=== PATIENT | female | born 1945 | race Caucasian/White ===

== ENCOUNTER 2023-03-07 08:39 | Outpatient (RCR) | payer MEDICARE, OTHER, SELFPAY | END 2023-03-07 23:59 | disposition home or self-care (01) | LOC: RPT 08:39 | PROVIDERS: ATTENDING PHYSICIAN Physical Medicine & Rehabilitation Pain Medicine; FAMILY PHYSICIAN Internal Medicine | DX: M54.6 Pain in thoracic spine (principal); Z73.6 Limitation of activities due to disability; M54.2 Cervicalgia | CPT/HCPCS: 97110; 97162 ==

== ENCOUNTER 2023-03-21 13:01 | Outpatient (RCR) | payer MEDICARE, OTHER, SELFPAY | END 2023-03-28 13:49 | disposition home or self-care (01) | LOC: RPT 13:01 | PROVIDERS: ATTENDING PHYSICIAN Physical Medicine & Rehabilitation Pain Medicine; FAMILY PHYSICIAN Internal Medicine | DX: M54.6 Pain in thoracic spine (principal); Z73.6 Limitation of activities due to disability | CPT/HCPCS: 97010; 97110 ==

== ENCOUNTER → 2023-04-04 20:30 | Outpatient (REF) | payer MEDICARE, OTHER, SELFPAY | LOC: MRI 20:30 | PROVIDERS: ATTENDING PHYSICIAN Specialist; FAMILY PHYSICIAN Nurse Practitioner Primary Care | DX: M25.511 Pain in right shoulder (principal) | CPT/HCPCS: 73221 ==

== ENCOUNTER 2023-05-13 06:06 | Inpatient (IN) | payer MEDICARE, OTHER, SELFPAY ==
--- NOTE | 2023-04-18 09:39 | CM ---
Patient is scheduled for an elective R Reverse TSA on 05/13/23. Spoke with patient prior to surgery. Patient had a R TKR at in 2020. Reintroduced role of Orthopedic Navigator. Patient reports that she lives with her and granddaughter in a
one story home. There are two small steps to enter. There is also a step into the bedroom and a step down to the kitchen. Currently she functions independently. Se has a cane, rolling walker, raised toilet seat and sling. She has had VN services
through VN. PCP is Kajal Malik.
Discussed orthopedic program and post surgical plans. Reviewed anticipated length of stay and assistance that she may need at discharge. Explained that goal is for him to return home at discharge. Also reviewed MD follow up and transition to
outpatient therapy. Patient is in agreement with tentative plan and states that her and granddaughter will be able to assist if needed.
Patient will complete online education.
Plan: Orthopedic Navigator will be involved in the care of patient after surgery and will reassess discharge needs at that time.
[2023-04-25 13:15] VITALS: BMI 27.7
[2023-04-25 14:05] LABS: Hematocrit 35.5 % (37.0-47.0); Mean Corp Hgb Conc. 33.8 g/dL (33.0-37.0); Mean Corpuscular Hgb 31.5 pg (27.0-31.0); Mean Corpuscular Volume 93.2 fL (81.0-99.0); Mean Platelet Volume 9.7 fL (7.4-10.4); Platelet Count 209 10^3/uL (130-400); Red Blood Cell Count 3.81 10^6/uL (4.20-5.40); Red Cell Dist. Width 12.3 % (11.5-14.5)
[2023-04-25 14:19] LABS: ALT (SGPT) 21 U/L (0-35); AST (SGOT) 28 U/L (14-36); Albumin 4.3 g/dl (3.5-5.0); Alkaline Phosphatase 57 U/L (38-126); Blood Urea Nitrogen 16 mg/dl (7-17); Calcium 8.7 mg/dl (8.4-10.2); Carbon Dioxide 25 mmol/L (22-30); Chloride 98 mmol/L (98-107); Estimated Creatinine Clearance 43 ml/min; Glucose 97 mg/dl (70-99); Potassium 4.5 mmol/L (3.5-5.1); Sodium 129 mmol/L (135-145); Total Bilirubin 0.4 mg/dl (0.2-1.3); eGFR > 60.00
[2023-04-25 15:18] VITALS: BMI 27.7
[2023-04-26 09:31] LABS: Glycohemoglobin (HgbA1c) 5.9 % (4.0-5.6)
[2023-05-13] VITALS (19 sets, daily range): BP systolic 113–159; BP diastolic 50–88; PULSE 81; O2SAT 94
[2023-05-13] MEDS: TYLENOL 1000 MG PO (06:36)
[2023-05-13] MEDS: CELEBREX 200 MG PO (06:36)
[2023-05-13] MEDS: NORMOSOL-R 1000 IV (06:36)
[2023-05-13] MEDS: DILAUDID 0.25 MG IV ×2 (09:15→09:26)
[2023-05-13] MEDS: NSS 1000 IV (09:36)
[2023-05-13] MEDS: ZESTRIL PO (11:35)
[2023-05-13] MEDS: ABILIFY 2 MG PO (11:37)
[2023-05-13] MEDS: LEXAPRO 20 MG PO (11:38)
[2023-05-13] MEDS: CRESTOR 10 MG PO (11:38)
[2023-05-13] MEDS: LINZESS 145 MCG PO (11:38)
[2023-05-13] MEDS: PROTONIX 40 MG PO (11:39)
[2023-05-13] MEDS: TYLENOL 650 MG PO ×4 (11:39→23:55)
--- NOTE | 2023-05-13 13:25 | PTCARENOTE ---
Received patient from PACU via bed around 1300 in stable condition. Patient NWB to right arm with sling in place. VS stable. 02 2L NC. Patient oriented to room. Call ceja in reach.
--- NOTE | 2023-05-13 13:48 | W.PN.ORTHO ---
Today's Communication / Plan
-
D/c when clinically stable.
Assessment
.
Distal Motor Intact: Yes
Dressing:
Clean, dry and intact.
Assessment:
R shoulder OA s/p R Reverse JAYANT w/ Dr Sands 05/13/23
- s/p R TKA, 06/2020, by Dr Briggs
DVT prophylaxis - ASA, b/l venous foot pumps
R shoulder pain - give IV Toradol now and add Lidoderm patches
- Continue Tylenol, Oxycodone prn, Decadron BID, and Celebrex
- Monitor pain and adjust meds if indicated
Post-op anxiety - will give low dose Xanax now (last dose reportedly 4 AM per pt) and adjust Xanax from BIDprn to q8hprn
HTN - + parameters - monitor BP
GERD and Hiatal hernia - continue PPI therapy
Irritable bowel syndrome with diarrhea - Colace ONLY to be used initially for post-op bowel regimen
Chronic hyponatremia, improving with fluid restriction - continue 40 oz fluid restriction
- NSS running
Hyperlipidemia
Coronary artery calcifications on chest CT 01/2023
Dilated ascending aorta, 3.9 cm
Mild mitral regurgitation
Mild tricuspid regurgitation
Diverticulosis
Fatty liver disease.
Gallstone pancreatitis 12/2022
Vertigo
Lumbar stenosis
Multilevel degenerative disc disease
Basal cell carcinoma, right cheek, status post excision
Osteopenia
Depression
Anxiety
Insomnia
Prediabetes, A1c 5.9
Plan
.
Surgery / Date: R Reverse JAYANT w/ Dr Sands 05/13/23
DVT Prophylaxis: Aspirin
Activity:
Out of bed.
PT/OT
Discharge Plan: Home
Subjective
.
.:
Patient examined resting in bed.
Reports R shoulder pain currently 07/20.
Reports post-op anxiety; however, denies any other new significant complaints.
Vital Signs and Labs
.
Vital Signs and Labs:
Lab Results
04/25/23 12:47
04/25/23 12:47
Temp Pulse Resp BP Pulse Ox
98.0 F 82 23 135/69 95
05/13/23 09:02 05/13/23 11:35 05/13/23 11:30 05/13/23 11:35 05/13/23 11:30
Physical Exam
-
HEENT: No pallor, cyanosis, or jaundice. Throat clear.
NECK: Supple. No JVD.
RESPIRATORY: Lungs clear to auscultation.
CVS: S1, S2 normal. RRR.�
ABDOMEN: Soft, non-tender. No distension.
EXTREMITIES: + RUE sling. Able to wiggle fingers b/l. 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 Strength equal, no calf pain with palpation/dorsiflexion. Calves soft.
DRAPERY EXAMINER: AOx3. No focal deficits. human resources safety manager grossly intact
[2023-05-13] MEDS: XANAX 0.25 MG PO (14:14)
[2023-05-13] MEDS: LIDOCAINE 4% PATCH 2 PATCH TOPICAL (14:14)
[2023-05-13] MEDS: TORADOL 30 MG IV (14:23)
[2023-05-13] MEDS: ANCEF 5 IV ×2 (16:23→23:54)
[2023-05-13] MEDS: ASPIRIN 325 MG PO (17:52)
[2023-05-13] MEDS: DECADRON 4 MG PO (20:15)
[2023-05-13] MEDS: ROXICODONE 10 MG PO (20:15)
[2023-05-13] MEDS: COLACE 100 MG PO (20:15)
[2023-05-13] MEDS: DESYREL 50 MG PO (21:27)
[2023-05-13] MEDS: BACTROBAN 2% OINTMENT 1 APPLIC NASAL (22:27)
[2023-05-14 03:30] VITALS: BP 134/72
[2023-05-14] MEDS: TYLENOL PO (05:00)
[2023-05-14] MEDS: ROXICODONE 2.5 MG PO (05:29)
[2023-05-14 07:35] VITALS: BP 137/79
[2023-05-14] MEDS: CELEBREX 200 MG PO (07:47)
[2023-05-14] MEDS: LEXAPRO 20 MG PO (07:48)
[2023-05-14] MEDS: ABILIFY 2 MG PO (07:48)
[2023-05-14] MEDS: ZESTRIL 20 MG PO (07:48)
[2023-05-14] MEDS: PROTONIX 40 MG PO (07:48)
[2023-05-14] MEDS: CRESTOR 10 MG PO (07:49)
[2023-05-14] MEDS: ASPIRIN 325 MG PO (07:49)
[2023-05-14] MEDS: TOPROL XL 25 MG PO (07:49)
[2023-05-14] MEDS: TYLENOL 650 MG PO (07:50)
[2023-05-14] MEDS: COLACE 100 MG PO (07:50)
[2023-05-14] MEDS: BACTROBAN 2% OINTMENT 1 APPLIC NASAL (07:50)
[2023-05-14] MEDS: DECADRON 4 MG PO (07:50)
[2023-05-14] MEDS: LIDOCAINE 4% PATCH 2 PATCH TOPICAL (07:51)
--- NOTE | 2023-05-14 08:29 | CM ---
Addendum entered by Blanche Moreau 05/14/23 09:49:
Patient did well in therapy. She has no concerns about going home and has updated her daughter. Her daughter will be present for discharge instructions; RN aware.
Original Note:
Reviewed chart and held rounds with OT and nursing. Patient admitted as planned for elective R Reverse TSA. Met with patient at bedside. Confirmed information previously obtained for case management assessment and discussed discharge plans. The plan
is for patient to return home at discharge. She will have support from her daughters, and granddaughter when she goes home. Discussed MD follow up and she is aware of need to contact surgeon's office to schedule appointment. Also reviewed no
need for VN services or outpatient PT until cleared by surgeon.
Patient will use [facility] pharmacy for discharge prescriptions.
No needs currently identified.
--- NOTE | 2023-05-14 09:03 | W.PN.ORTHO ---
Today's Communication / Plan
-
Await OT recs.
D/c later today if remaining clinically stable.
Assessment
.
Distal Motor Intact: Yes
Dressing:
Clean, dry and intact.
Assessment:
R shoulder OA s/p R Reverse TSA w/ Dr Sands 05/13/23
- s/p R TKA, 06/2020, by Dr Briggs
DVT prophylaxis - ASA, b/l venous foot pumps
R shoulder pain POD 0 - s/p IV Toradol x1 and Lidoderm patches
- Tylenol, Oxycodone prn, Decadron BID, and Celebrex continued
- Pain better tolerated by POD 1
Anxiety POD 0 - Xanax adjusted to q8hprn during admission
- Pt less nervous this AM; can return to home dosing of Xanax (BIDprn) upon d/c
HTN - + parameters - BPs stable
GERD and Hiatal hernia - continue PPI therapy
Irritable bowel syndrome with diarrhea - Colace ONLY to be used initially for post-op bowel regimen
- Will advise adding Senna if no bowel movement occurs within 48 hours post-surgery
Chronic hyponatremia, improving with fluid restriction - continue 40 oz fluid restriction
- s/p NSS during admit
Hyperlipidemia
Coronary artery calcifications on chest CT 01/2023
Dilated ascending aorta, 3.9 cm
Mild mitral regurgitation
Mild tricuspid regurgitation
Diverticulosis
Fatty liver disease.
Gallstone pancreatitis 12/2022
Vertigo
Lumbar stenosis
Multilevel degenerative disc disease
Basal cell carcinoma, right cheek, status post excision
Osteopenia
Depression
Anxiety
Insomnia
Prediabetes, A1c 5.9
Plan
.
Surgery / Date: R Reverse TSA w/ Dr Sands 05/13/23
DVT Prophylaxis: Aspirin
Activity:
Out of bed.
PT/OT
Discharge Plan: Home
Subjective
.
.:
Patient resting comfortably in bed this AM.
Reports R shoulder pain at worst '05/20' today; notes major improvement in pain since yesterday.
Denies any other new significant complaints.
Eager for potential d/c today.
Vital Signs and Labs
.
Vital Signs and Labs:
Lab Results
04/25/23 12:47
04/25/23 12:47
Temp Pulse Resp BP Pulse Ox
98.6 F 69 16 128/79 94
05/14/23 07:35 05/14/23 07:35 05/14/23 07:35 05/14/23 07:49 05/14/23 07:35
Non-invasive Hgb result: 11.2
Physical Exam
-
HEENT: No pallor, cyanosis, or jaundice. Throat clear.
NECK: Supple. No JVD.
RESPIRATORY: Lungs clear to auscultation.
CVS: S1, S2 normal. RRR.�
ABDOMEN: Soft, non-tender. Non-distended.
EXTREMITIES: + RUE sling. Able to wiggle fingers b/l. Good animal cruelty investigator b/l. Strength equal, no calf pain with palpation/dorsiflexion. Calves soft.
SAND CONDITIONER MACHINE: AOx3. No focal deficits. manager qa grossly intact
[2023-05-14] MEDS: ROXICODONE 5 MG PO (09:34)
--- NOTE | 2023-05-14 09:41 | W.DS.TRANS ---
DC Summary - [employer]
-
Discharge Instructions:
Sleep Apnea Risk Low
Discharge Diagnosis/Procedures R shoulder OA s/p R Reverse TSA w/ Dr Sands
24
Diet Regular,Other diet
Additional Diets Restrict fluids to 40 oz daily
Activity As tolerated
Additional Activity Non-weightbearing right upper extremity
Driving Restrictions Not until seen by your Dr
Bathing Restrictions OK to Shower
Wound Care Leave dressing on until seen by surgeon's office
for follow-up in 2 weeks.
Instructions:
Stand-Alone Forms: Total Shoulder Replacement D/C
Changes to Home Medications: Yes
Discharge Medications:
DC Medications w/original date entered in [facility]
Prevagen 1 tab PO DAILY Supplement 05/25/20
linaclotide 145 mcg capsule (Linzess) 145 mcg PO DAILY Gastrointestinal Issue 05/25/20
metoprolol succinate 25 mg tablet,extended release 24 hr 25 mg PO DAILY Blood Pressure 05/25/20
esomeprazole magnesium 20 mg capsule,delayed release (Nexium 24HR) 40 mg PO DAILY Gastrointestinal Issue 07/11/22
Vitamin B-12 2 tab PO DAILY Supplement 04/22/23
aripiprazole 2 mg tablet 2 mg PO DAILY depression 04/22/23
cholecalciferol (vitamin D3) 125 mcg (5,000 unit) tablet (Vitamin D3) 250 mcg PO DAILY Supplement 04/22/23
escitalopram oxalate 20 mg tablet (Lexapro) 20 mg PO DAILY depression 04/22/23
multivit with min-folic acid-lutein 400 mcg-250 mcg chewable tablet (Centrum Silver) 2 tab PO DAILY Supplement 04/22/23
rosuvastatin 10 mg tablet (Crestor) 10 mg PO DAILY High Cholesterol 04/22/23
vitamins A,C,O-otcy-qxqxcd 2,148 mcg-113 mg-45 mg-17.4 mg tablet (PreserVision AREDS) 1 tab PO DAILY Supplement 04/22/23
mupirocin 2 % topical ointment 1 applic intranasal BID #1 tube 04/25/23
acetaminophen 500 mg tablet (Tylenol Extra Strength) 1,000 mg (2 x 500 mg) PO Q6H #60 tabs 05/13/23
aspirin 325 mg tablet,delayed release 325 mg PO DAILY #30 tabs 05/13/23
dexamethasone 4 mg tablet 4 mg PO BID Anti-inflammatory #5 tabs 05/13/23
docusate sodium 100 mg capsule (Colace) 100 mg PO BID #30 caps 05/13/23
prochlorperazine maleate 5 mg tablet (Compazine) 5 mg PO TID PRN nausea and vomiting #30 tabs 05/13/23
sennosides 8.6 mg capsule (senna) 17.2 mg (2 x 8.6 mg) PO BID PRN Constipation #30 caps 05/13/23
alprazolam 0.5 mg tablet 0.25 mg (1/2 x 0.5 mg) PO BIDPRN PRN anxiety #0 tabs 05/14/23
celecoxib 200 mg capsule (Celebrex) 200 mg PO DAILY #0 caps 05/14/23
lidocaine 4 % topical patch 2 patch topical DAILY #30 ea 05/14/23
lisinopril 20 mg tablet 20 mg PO DAILY Blood Pressure #0 tabs 05/14/23
oxycodone 5 mg tablet 5 - 10 mg (1 - 2 x 5 mg) PO Q6H PRN moderate-severe pain #30 tabs 05/14/23
trazodone 50 mg tablet 50 mg PO HS PRN insomnia #0 tabs 05/14/23
Home Medication Changes
acetaminophen 500 mg tablet (Tylenol Extra Strength) 1,000 mg (2 x 500 mg) PO Q6H #60 tabs 05/13/23
aspirin 325 mg tablet,delayed release 325 mg PO DAILY #30 tabs 05/13/23
dexamethasone 4 mg tablet 4 mg PO BID Anti-inflammatory #5 tabs 05/13/23
docusate sodium 100 mg capsule (Colace) 100 mg PO BID #30 caps 05/13/23
prochlorperazine maleate 5 mg tablet (Compazine) 5 mg PO TID PRN nausea and vomiting #30 tabs 05/13/23
sennosides 8.6 mg capsule (senna) 17.2 mg (2 x 8.6 mg) PO BID PRN Constipation #30 caps 05/13/23
lidocaine 4 % topical patch 2 patch topical DAILY #30 ea 05/14/23
oxycodone 5 mg tablet 5 - 10 mg (1 - 2 x 5 mg) PO Q6H PRN moderate-severe pain #30 tabs 05/14/23
Pending Results: No
[2023-05-14 09:49] VITALS: BP 146/79; BP 160/80; PULSE 70; O2SAT 92
[2023-05-14] MEDS: LINZESS PO (10:09)
[2023-05-14 11:37] VITALS: BP 165/85
== END 2023-05-14 11:41 | disposition home or self-care (01) | DRG 483 ==
LOC: 2 SOUTH 06:06
PROVIDERS: ADMITTING PHYSICIAN Specialist; FAMILY PHYSICIAN Nurse Practitioner Primary Care
PROC: 0LS30ZZ Reposition Right Upper Arm Tendon, Open Approach (ICD-10-PCS; 2023-05-13)
PROC: 0RRJ00Z Replacement of Right Shoulder Joint with Reverse Ball and Socket Synthetic Substitute, Open Approach (ICD-10-PCS; 2023-05-13)
DX: M19.011 Primary osteoarthritis, right shoulder (principal); E87.1 Hypo-osmolality and hyponatremia; I10 Essential (primary) hypertension; E78.5 Hyperlipidemia, unspecified; I25.10 Atherosclerotic heart disease of native coronary artery without angina pectoris; I77.819 Aortic ectasia, unspecified site; I08.1 Rheumatic disorders of both mitral and tricuspid valves; K21.9 Gastro-esophageal reflux disease without esophagitis; K44.9 Diaphragmatic hernia without obstruction or gangrene; K76.0 Fatty (change of) liver, not elsewhere classified; M48.061 Spinal stenosis, lumbar region without neurogenic claudication; F32.A Depression, unspecified; F41.9 Anxiety disorder, unspecified; M81.0 Age-related osteoporosis without current pathological fracture; K58.0 Irritable bowel syndrome with diarrhea; G47.00 Insomnia, unspecified; R73.03 Prediabetes; Z87.19 Personal history of other diseases of the digestive system; Z85.828 Personal history of other malignant neoplasm of skin
CPT/HCPCS: 36415; 73020; 80053; 83036; 85027; 87070; 93005; 97166; 97535; C1713; C1776

== ENCOUNTER 2023-06-04 12:04 | Outpatient (RCR) | payer MEDICARE, OTHER, SELFPAY | END 2023-06-04 23:59 | disposition home or self-care (01) | LOC: RPT 12:04 | PROVIDERS: ATTENDING PHYSICIAN Physician Assistant Surgical; FAMILY PHYSICIAN Nurse Practitioner Primary Care | DX: Z47.1 Aftercare following joint replacement surgery (principal); Z96.611 Presence of right artificial shoulder joint; Z73.6 Limitation of activities due to disability | CPT/HCPCS: 97010; 97110; 97162; 97535 ==

== ENCOUNTER 2023-07-09 14:06 | Outpatient (RCR) | payer MEDICARE, OTHER, SELFPAY | END 2023-07-09 23:59 | disposition home or self-care (01) | LOC: RPT 14:06 | PROVIDERS: ATTENDING PHYSICIAN Physician Assistant Surgical; FAMILY PHYSICIAN Nurse Practitioner Primary Care | DX: Z47.1 Aftercare following joint replacement surgery (principal); Z96.611 Presence of right artificial shoulder joint; M25.511 Pain in right shoulder; Z73.6 Limitation of activities due to disability | CPT/HCPCS: 97010; 97110 ==

== ENCOUNTER 2023-08-06 14:14 | Outpatient (RCR) | payer MEDICARE, OTHER, SELFPAY | END 2023-08-06 23:59 | disposition home or self-care (01) | LOC: RPT 14:14 | PROVIDERS: ATTENDING PHYSICIAN Physician Assistant Surgical; FAMILY PHYSICIAN Nurse Practitioner Primary Care | DX: Z47.1 Aftercare following joint replacement surgery (principal); Z96.611 Presence of right artificial shoulder joint; Z73.6 Limitation of activities due to disability | CPT/HCPCS: 97010; 97110 ==

== ENCOUNTER → 2023-11-25 08:56 | Outpatient (REF) | payer MEDICARE, OTHER, SELFPAY ==
[2023-11-25 11:07] LABS: % Basophils 0.5 % (0-2); % Eosinophils 2.7 % (0-6); % Immature Granulocytes 0.6 % (0-0.5); % Monocytes 7.9 % (1.7-9.3); % Neutrophils 71.3 % (42.2-75.2); Absolute Basophils 0.1 10^3/uL (0-0.2); Absolute Eosinophils 0.3 10^3/uL (0-0.7); Absolute Immature Granulocytes 0.1 10^3/uL (0-0.05); Absolute Lymphocytes 1.6 10^3/uL (1.2-3.4); Absolute Monocytes 0.8 10^3/uL (0.1-0.6); Absolute Neutrophils 6.7 10^3/uL (1.4-6.5); Hematocrit 33.6 % (37.0-47.0); Hemoglobin 11.3 g/dL (12.0-16.0); Mean Corp Hgb Conc. 33.6 g/dL (33.0-37.0); Mean Corpuscular Hgb 29.3 pg (27.0-31.0); Nucleated Red Blood Cells % 0 %; Red Blood Cell Count 3.86 10^6/uL (4.20-5.40); Red Cell Dist. Width 14.6 % (11.5-14.5); White Blood Cell Count 9.5 10^3/uL (4.8-10.8)
[2023-11-25 11:50] LABS: Blood Urea Nitrogen 19 mg/dl (7-17); Calcium 9.5 mg/dl (8.4-10.2); Carbon Dioxide 22 mmol/L (22-30); Chloride 100 mmol/L (98-107); Glucose 111 mg/dl (70-99); Potassium 4.7 mmol/L (3.5-5.1); Sodium 134 mmol/L (135-145); eGFR > 60.00
== END ==
LOC: SDSPAT 08:56
PROVIDERS: ATTENDING PHYSICIAN Student in an Organized Health Care Education/Training Program; FAMILY PHYSICIAN Nurse Practitioner Primary Care; OTHER PHYSICIAN Internal Medicine Cardiovascular Disease
DX: Z01.818 Encounter for other preprocedural examination (principal)
CPT/HCPCS: 36415; 80048; 85025; 93005

== ENCOUNTER 2023-11-26 20:26 | Inpatient (IN) | payer MEDICARE, OTHER, SELFPAY ==
[2023-11-26 13:41] VITALS: BP 174/96
[2023-11-26 13:59] LABS: % Basophils 0.3 % (0-2); % Immature Granulocytes 0.5 % (0-0.5); % Lymphocytes 16.1 % (20.5-51.1); % Monocytes 9.7 % (1.7-9.3); % Neutrophils 70.4 % (42.2-75.2); Absolute Eosinophils 0.3 10^3/uL (0-0.7); Absolute Immature Granulocytes 0.1 10^3/uL (0-0.05); Absolute Lymphocytes 1.7 10^3/uL (1.2-3.4); Absolute Neutrophils 7.4 10^3/uL (1.4-6.5); Hematocrit 33.2 % (37.0-47.0); Mean Corp Hgb Conc. 33.1 g/dL (33.0-37.0); Mean Corpuscular Hgb 28.5 pg (27.0-31.0); Mean Platelet Volume 9.2 fL (7.4-10.4); Nucleated Red Blood Cells % 0 %; Platelet Count 250 10^3/uL (130-400); Red Blood Cell Count 3.86 10^6/uL (4.20-5.40); Red Cell Dist. Width 14.9 % (11.5-14.5); White Blood Cell Count 10.4 10^3/uL (4.8-10.8)
[2023-11-26 14:12] LABS: ALT (SGPT) 17 U/L (0-35); AST (SGOT) 24 U/L (14-36); Albumin 4.3 g/dl (3.5-5.0); Alkaline Phosphatase 48 U/L (38-126); Blood Urea Nitrogen 15 mg/dl (7-17); Calcium 8.9 mg/dl (8.4-10.2); Carbon Dioxide 26 mmol/L (22-30); Chloride 98 mmol/L (98-107); Glucose 119 mg/dl (70-99); Sodium 137 mmol/L (135-145); Total Bilirubin 0.3 mg/dl (0.2-1.3); Total Protein 6.9 g/dl (6.3-8.2); eGFR > 60.00
[2023-11-26 14:25] LABS: Troponin I < 0.012 ng/ml
[2023-11-26 16:22] VITALS: BP 147/85
[2023-11-26 17:58] VITALS: BP 157/86
--- NOTE | 2023-11-26 17:59 | ED.GENMED ---
History of Present Illness
General
Chief Complaint: Chest Pain
Time Seen by Provider: 11/26/23 17:42
History of Present Illness
History of Present Illness:
78-year-old female with history of hypertension and hyperlipidemia presents to the emergency department for evaluation of pleuritic left-sided chest discomfort that began suddenly last night. Pain is nonradiating, denies any recent coughing or
viral symptoms. No nausea or vomiting. Non-smoker
Past History
Past History
ED Past Medical History: Other (IBS, diverticulitis)
Social History
Tobacco: Non-smoker
Alcohol: Occasional
Family History
Family History: Negative Diabetes, Hypertension or CAD
Review of Systems
Review of Systems
Allergies reviewed?: Yes
All Other Systems: ROS reviewed and negative except as documented in HPI and ROS
Phy Exam
Physical Exam
Physical Exam:
GEN: Well appearing, NAD, WDWN
Eyes: PERRLA, EOMs intact, no scleral icterus
HENT: NCAT, oral mucosa moist, no JVD, no cervical adenopathy.
Lungs: Diminished bibasilar breath sounds likely secondary to inspiratory effort
Cardiac: RRR, no M/R/G, no peripheral edema. Radial pulses 2+ bilat
Abdomen: S, NT, ND, NABS, no masses or hepatosplenomegaly
Neuro: AO x 3
MSK: No gross deformity or ecchymosis. No edema. No digital clubbing
Skin: No rashes, petechiae. Normal color, no pallor or jaundice.
Psych: Calm, cooperative, proper hygiene
Scores
Heart Score for Chest Pain Patients
STEMI patient?: Not applicable
Course
Orders/Labs/Results
Orders:
Orders
11/26/23 13:37
Electrocardiogram (*1) Urgent
Reason for Study: Chest Pain
EKG- Treatment ONCE
11/26/23 13:50
CMP [Comprehensive Metabolic Panel] Urgent
Complete Blood Count/With Diff Urgent
D-Dimer Urgent
Troponin I Urgent
11/26/23 17:58
CT Chest Pe Study Urgent
Comment:
Reason For Exam: pleuritic chest pain elevated D dimer
11/26/23 19:14
Oxycodone [Roxicodone] 5 mg PO NOW STA
11/26/23 19:54
Ketorolac [Toradol] 15 mg IV NOW STA
11/26/23 19:55
Trazodone [Desyrel] 50 mg PO HSPRN PRN
11/26/23 19:56
Admit/Transfer Patient As Directed
Co-Sign Provider:
Level of Care: Inpatient admission
Assign to:: Medical/Surgical
Physician / Group: hospitalist
Diagnosis: pleuritis
Reason for Hospitalization: pleural effusion
Expected length of stay greater than two midnights?: Yes
ELOS- Estimated Length of Stay in days: 2
I certify the patient meets the requirements for IP care: Yes
Code Status As Directed
Resuscitation Status: Full Code
PRN Pain Medication Management As Directed
May give lesser potent ordered pain med per pt: Yes
preference::
Protocol:: Medication orders for pain may be administered in a
manner that supports deferring to patient preference
when the pt is:
- Requesting an ordered lesser potent pain medication.
Least to most potent pain medications are defined
as: acetaminophen < NSAID < tramadol < opioids
(morphine, oxycodone, hydromorphone).
- Requesting a lesser dose of the same medication IF
ORDERED.
- Requesting a less intrusive route of administration
if both routes are prescribed by the provider (PO <
IV).
11/26/23 20:00
Alprazolam [Xanax] 0.25 mg PO BID
11/27/23 08:00
Aripiprazole [Abilify] 2 mg PO DAILY
Cyanocobalamin [Vitamin B-12] 1,000 mcg PO DAILY
Escitalopram Oxalate [Lexapro] 20 mg PO DAILY
Linaclotide [Linzess] 145 mcg PO DAILY
Lisinopril [Zestril] 20 mg PO DAILY
Metoprolol Xl [Toprol Xl] 25 mg PO DAILY
Rosuvastatin Calcium [Crestor] 10 mg PO DAILY
esomeprazole magnesium [Nexium 24HR] 40 mg PO DAILY
Abnormal Lab Results
11/26/23
13:50
RBC 3.86 L 10^6/uL
(4.20-5.40)
Hgb 11.0 L g/dL
(12.0-16.0)
Hct 33.2 L %
(37.0-47.0)
RDW 14.9 H %
(11.5-14.5)
Abs Immat Gran (auto) 0.1 H 10^3/uL
(0-0.05)
Absolute Neuts (auto) 7.4 H 10^3/uL
(1.4-6.5)
Absolute Monos (auto) 1.0 H 10^3/uL
(0.1-0.6)
Lymphocytes % 16.1 L %
(20.5-51.1)
Monocytes % 9.7 H %
(1.7-9.3)
D-Dimer 2.70 H ug/mlFEU
(0.00-0.50)
Glucose 119 H mg/dl
(70-99)
11/26/23 13:50
11/26/23 13:50
Vital Signs
Initial and Last Documented VS:
Initial Vital Signs
Temp Pulse Resp BP Pulse Ox
98.8 F 82 18 174/96 97
11/26/23 13:41 11/26/23 13:41 11/26/23 13:41 11/26/23 13:41 11/26/23 13:41
Last Documented Vital Signs
Temp Pulse Resp BP Pulse Ox
98.1 F 83 20 157/86 96
11/26/23 16:22 11/26/23 17:58 11/26/23 17:58 11/26/23 17:58 11/26/23 17:58
MDM/Problems Addressed
MDM/Problems Addressed:
Etiology to the patient's pleural effusions is not clear however she is quite discomforted by the pain, did discuss options for outpatient versus inpatient management, given her significant symptoms we will admit for IR consultation and possible
diagnostic/therapeutic thoracentesis
*Critical Care Note
Total Time (30-74mins, 75-104mins- exclusive of procedures): Not Applicable
ED Attending Note
-
Portions of this chart may have been created with voice recognition software.� Occasional wrong word or��sound alike� substitutions may have occurred due to the inherent limitations of voice recognition software.
Discharge Plan
Departure
Patient Disposition: Admit
Date of Disposition: 11/26/23
Time of Disposition: 19:22
Presentation/result/management discussed w/ accepting MD/DO: Hospitalist
Discharge Problem:
Pleural effusion
Prescriptions:
No Action
metoprolol succinate 25 MG tablet extended release 24 hr
25 mg PO DAILY
Linzess 145 MCG capsule
145 mcg PO DAILY
Prevagen
1 tab PO DAILY
esomeprazole magnesium [Nexium 24HR] 20 MG capsule,delayed release(DR/EC)
40 mg PO DAILY
cyanocobalamin (vitamin B-12) 1,000 mcg Tablet
1,000 mcg PO DAILY Qty: 0
escitalopram oxalate [Lexapro] 20 mg Tablet
20 mg PO DAILY
PreserVision AREDS 2,148 mcg-113 mg-45 mg-17.4mg Tablet
1 tab PO DAILY
rosuvastatin [Crestor] 10 mg Tablet
10 mg PO DAILY
aripiprazole 2 mg Tablet
2 mg PO DAILY
celecoxib [Celebrex] 200 mg Capsule
200 mg PO DAILY Qty: 0 0RF
Rx Instructions:
Home medication.
Take with food.
DO NOT take within 2 hours of Aspirin.
lisinopril 20 MG tablet
20 mg PO DAILY Qty: 0 0RF
tramadol 50 mg Tablet
50 mg PO TID
Patient Comments:
11/26/2023: last filled 11/06/23, 90 tabs for 30 days from [facility]
Centrum Silver Women 8 mg iron-400 mcg-50 mcg Tablet
1 tab PO DAILY
alprazolam 0.25 mg tablet
0.25 mg PO BID
Patient Comments:
11/26/2023: last filled 10/31/23, 60 tabs for 30 days from [facility]
trazodone 50 mg tablet
50 mg PO HSPRN PRN (Reason: insomnia)
Referrals:
Kajal Malik CRNP [Family Provider] -
Interventions
Interventions:
*Risk Screen - Suicide Last Done: 11/26/23 13:41
*General Assessment Last Done: 11/26/23 13:41
*Neglect/Abuse Screening Last Done: 11/26/23 13:41
ED- Fall Risk Assessment Last Done: 11/26/23 17:42
*ED COVID-19 Vaccine History Last Done: 11/26/23 13:41
ED- Cardiac Assessment Last Done: 11/26/23 17:42
Discharge Date and Time
Print Language: PALAUAN
[2023-11-26] MEDS: ROXICODONE 5 MG PO (19:24)
[2023-11-26] MEDS: TORADOL 15 MG IV (19:58)
--- NOTE | 2023-11-26 20:03 | HPS.HSE ---
Family Physician
-
Family Physician: Kajal Malik
Chief Complaint
-
Bilateral chest pain
History of Present Illness
This is a 78-year-old female with a past medical history of hypertension, hyperlipidemia, depression and anxiety presenting to the emergency department with acute onset of low generalized chest pain that started today.
Patient reports that she arose and started noticing chest pain throughout her chest. Mostly on the left but also on the right. She reports that the pain is worse with breathing, coughing or sneezing. She denied having any fevers. She denied any
chills. She denied any cough. She denies upper respiratory symptoms. Patient reports that she had been in usual state of health really up until the onset of events. She only feels slightly more tired yesterday compared to today. She has known
sick contacts (spouse did have a cold). Patient herself reported that she started taking antibiotics about 2 weeks ago for a tooth abscess. She finished the antibiotics yesterday. She was actually pending a dental appointment today for follow-up.
Patient denies any recent travels. She has no history of immunocompromise. She denies any lower extremity swelling calf tenderness, lightheadedness or dizziness.
In the emergency department the patient was afebrile, she was normotensive with a blood pressure of 157/80 and pulse was 83 she was satting 96% on room air. She had elevated D-dimer so a CT PE study was done. It showed small bilateral pleural
effusions that were loculated with left greater than right. She had no leukocytosis with a white count of 10.4 hemoglobin was 11 and platelet count was 250. Chemistries were all within normal limits.
Medical History
Past Medical History
Past Medical History: Reports GERD, HTN, Hypercholesterolemia and Psychiatric
Past Surgical History: Reports Other
Additional Past Surgical History:
Hysterectomy last year for pelvic floor dysfunction
Right total shoulder arthroplasty
Social History
Tobacco: Non-smoker
Alcohol: None
Drug: None
Personal:
Living: With Family
Employment: Retired
Family History
Family History: Not pertinent
Allergies / Home Medications
Allergies reflects when Allergies were last updated in [facility].
Home Medications with original date entered in [facility]
Allergy/Medication List:
Allergies
Allergy/AdvReac Type Severity Reaction Status Date / Time
No Known Allergies Allergy Verified 11/26/23 13:44
Home Medications
Prevagen 1 tab PO DAILY Supplement 05/25/20
linaclotide 145 mcg capsule (Linzess) 145 mcg PO DAILY Gastrointestinal Issue 05/25/20
metoprolol succinate 25 mg tablet,extended release 24 hr 25 mg PO DAILY Blood Pressure 05/25/20
esomeprazole magnesium 20 mg capsule,delayed release (Nexium 24HR) 40 mg PO DAILY Gastrointestinal Issue 07/11/22
aripiprazole 2 mg tablet 2 mg PO DAILY depression 04/22/23
cyanocobalamin (vitamin B-12) 1,000 mcg tablet 1,000 mcg PO DAILY Supplement ##0 04/22/23
escitalopram oxalate 20 mg tablet (Lexapro) 20 mg PO DAILY depression 04/22/23
rosuvastatin 10 mg tablet (Crestor) 10 mg PO DAILY High Cholesterol 04/22/23
vitamins A,C,C-vgfr-lbucxg 2,148 mcg-113 mg-45 mg-17.4 mg tablet (PreserVision AREDS) 1 tab PO DAILY Supplement 04/22/23
celecoxib 200 mg capsule (Celebrex) 200 mg PO DAILY #0 caps 05/14/23
lisinopril 20 mg tablet 20 mg PO DAILY Blood Pressure #0 tabs 05/14/23
alprazolam 0.25 mg tablet 0.25 mg PO BID 11/26/23
wahgcjcy-xfrc-boro 8 mg-folic 400 mcg-K 50 mcg-lutein 300 mcg tablet (Centrum Silver Women) 1 tab PO DAILY 11/26/23
tramadol 50 mg tablet 50 mg PO TID 11/26/23
trazodone 50 mg tablet 50 mg PO HSPRN PRN insomnia 11/26/23
Review of Systems
-
History Source: Patient
Constitutional: Reports No Symptoms
EENT: Reports No Symptoms
Respiratory: Reports Trouble Breathing
Cardiac: Reports Chest Pain
Abdomen/GI: Reports No Symptoms
: Reports No Symptoms
Musculoskeletal: Reports No Symptoms
Skin: Reports No Symptoms
Neurological: Reports No Symptoms
Endocrine: Reports No Symptoms
Psych: Reports No Symptoms
Physical Exam
Vital Signs
Vital Signs
Temp Pulse Resp BP Pulse Ox
98.1 F 83 20 157/86 96
11/26/23 16:22 11/26/23 17:58 11/26/23 17:58 11/26/23 17:58 11/26/23 17:58
Physical Exam
General: Well Developed, Well Nourished and Pain
HEENT: NormoCephalic, Anicteric, Moist mucous membranes and Atraumatic
Respiratory: Clear
Cardiac: S1/S2 and Regular Rhythm
Breast: Deferred by me
GI: Soft, Non Tender, Non Distended and Normal Bowel Sounds
Rectal: Deferred by Provider
Genito-urinary: Deferred by me
Musculoskeletal: No Clubbing, No Cyanosis and No Edema
Skin: Warm
Neuro: AO x 3
Hematologic/Lymphatic: No Lymphadenopathy
Psych: Calm
Laboratory Results
-
11/26/23 13:50
11/26/23 13:50
Laboratory Results
Total Bilirubin 0.3 mg/dl (0.2-1.3) 11/26/23 13:50
AST 24 U/L (14-36) 11/26/23 13:50
ALT 17 U/L (0-35) 11/26/23 13:50
Alkaline Phosphatase 48 U/L (38-126) 11/26/23 13:50
Troponin I < 0.012 ng/ml 10/16/24 13:50
Data Reviewed
-
CT Scan: Report Reviewed by me
Lab Data: Labs Reviewed by me
Old Records: Reviewed
Impression/Plan
-
IMPRESSION:
78 y.o female coming in with one day of pleuritic chest pain and found to have bilateral loculated effusions, L > R. She is afebrile, hemodynamically stable and without leukocytosis. No significant HPI except recent tooth abscess for which she
completed a course of amoxicillin yesterday. No consolidations, hypoxia, cough, wheezing to suggest parapneumonic effusion but cannot rule out infected pleural effusions. No evidence of CHF.
PLAN:
1. Pleural effusion - Bilateral loculated effusions. No obvious signs of systemic infection. No consolidation on CT scan and no PE. Infectious vs inflammatory effusion.
- admit to medsurg
- pain control and supportive care for now
- IR consult for diagnostic thoracentesis of the larger left effusion
- blood cultures if febrile and initiate abx only if decompensating prior to studies
- inflammatory markers in am (no rash, joint symptoms or h/o CTDs)
2. Hypertension -
- continue lisinopril and metoprolol
3. GERD - ppi
4. Psych
- lexapro and aripiprazole for depression
DVT PPX - lovenox sq
Code Status - Full
[2023-11-26 20:43] VITALS: BP 168/88
[2023-11-26 21:58] VITALS: BP 134/76
[2023-11-26 23:25] VITALS: BP 108/65; BMI 28.8
[2023-11-27] VITALS (11 sets, daily range): BP systolic 101–152; BP diastolic 53–80; BMI 28.3
[2023-11-27] MEDS: XANAX PO (00:15)
[2023-11-27] MEDS: ZOFRAN 4 MG IV (02:07)
[2023-11-27] MEDS: DILAUDID 0.5 MG IV ×5 (02:08→22:42)
[2023-11-27 06:59] LABS: Hematocrit 31.1 % (37.0-47.0); Hemoglobin 10.4 g/dL (12.0-16.0); Mean Corp Hgb Conc. 33.4 g/dL (33.0-37.0); Mean Corpuscular Hgb 28.5 pg (27.0-31.0); Mean Corpuscular Volume 85.2 fL (81.0-99.0); Mean Platelet Volume 9.2 fL (7.4-10.4); Platelet Count 223 10^3/uL (130-400); Red Blood Cell Count 3.65 10^6/uL (4.20-5.40); Red Cell Dist. Width 14.8 % (11.5-14.5)
[2023-11-27 07:27] LABS: Albumin 3.7 g/dl (3.5-5.0); Blood Urea Nitrogen 16 mg/dl (7-17); Calcium 8.8 mg/dl (8.4-10.2); Carbon Dioxide 26 mmol/L (22-30); Chloride 99 mmol/L (98-107); Estimated Creatinine Clearance 45 ml/min; Glucose 121 mg/dl (70-99); LDH 185 U/L (120-246); Potassium 4.5 mmol/L (3.5-5.1); Sodium 134 mmol/L (135-145); Total Protein 6.2 g/dl (6.3-8.2); Triglycerides 68 mg/dl (10-149); eGFR > 60.00
[2023-11-27 07:43] LABS: Erythrocyte Sed Rate 36 mm/hour (0-20)
[2023-11-27] MEDS: LINZESS 145 MCG PO (08:37)
[2023-11-27] MEDS: LEXAPRO 20 MG PO (08:37)
[2023-11-27] MEDS: VITAMIN B-12 1000 MCG PO (08:37)
[2023-11-27] MEDS: XANAX 0.25 MG PO ×2 (08:37→19:56)
[2023-11-27] MEDS: ZESTRIL 20 MG PO (08:37)
[2023-11-27] MEDS: CRESTOR 10 MG PO (08:38)
[2023-11-27] MEDS: ABILIFY 2 MG PO (08:38)
[2023-11-27] MEDS: PROTONIX 40 MG PO (08:38)
[2023-11-27] MEDS: TOPROL XL 25 MG PO (08:38)
--- NOTE | 2023-11-27 09:30 | W.PN.HOSP.TC ---
Today's Communication/Plan
-
[facility] consult for thoracentesis
Pulmonary Consult
Oxygen supplement
Assessment / Plan
Assessment / Plan
1. Pleural effusion - Bilateral loculated effusions. No obvious signs of systemic infection. No consolidation on CT scan and no PE. Infectious vs inflammatory effusion.
- admit to medsurg
- pain control and supportive care for now
- IR consult for diagnostic thoracentesis of the larger left effusion
- blood cultures if febrile and initiate abx only if decompensating prior to studies
-WBC 10k/ESR 36/CRP 144
will consult Pulmonary
Last mammogram was 2 yrs ago, no hx of cancer or inflammatory disease
2. Hypertension -
- continue lisinopril and metoprolol
3. GERD - ppi
4. Psych
- lexapro and aripiprazole for depression
DVT PPX - lovenox sq
Code Status - Full
Anticipated Discharge: > 48 hours
Subjective/Interval History
-
Date of Service: November 27, 2023
Awake, alert
Objective Data
-
Labs:
Laboratory Results
11/27/23
06:42
WBC 10.0
Hgb 10.4 L
Hct 31.1 L
Plt Count 223
Sodium 134 L
Potassium 4.5
Chloride 99
Carbon Dioxide 26
BUN 16
Creatinine 0.9
Glucose 121 H
Calcium 8.8
Vital Signs:
Vital Signs
Temp Pulse Resp BP Pulse Ox
98.1 F 85 20 110/53 95
11/26/23 16:22 11/27/23 06:38 11/27/23 06:38 11/27/23 08:35 11/27/23 06:38
Review of Systems
-
History Source: Patient and Coordinated Provider
Constitutional: Denies Fever
EENT: Reports No Symptoms Reported
Respiratory: Reports Trouble Breathing and Pleurisy
Cardiac: Reports No Symptoms; Denies Chest Pain
Abdomen/GI: Reports No Symptoms
Genitourinary: Reports No Symptoms
Physical Exam
-
General: Well Developed, Well Nourished and No Apparent Distress
HEENT: Normocephalic, Atraumatic and Moist Mucous Membranes
Respiratory: Decreased Breath Sounds (bibasilar)
Cardiac: Regular Rhythm and S1/S2
GI: Nontender and Nondistended
Musculoskeletal: No Clubbing, No Cyanosis and No Edema
--- NOTE | 2023-11-27 15:48 | CON.PUL ---
Consultation
Consultation Request
Date/Time Consultation Requested: 11/27/2023
Date/Time Consultation Performed: 11/27/2023
Requesting Provider: Dr. Valdivia
Performing Provider: Dr. Jesus Glasgow
Reason for Consultation: Pleural effusion
Medical History
-
History of Present Illness:
78-year-old woman with past medical history significant for hypertension, hyperlipidemia, depression, anxiety presented to the emergency room with acute onset low generalized chest pain for 1 day.
She noticed chest pain this morning. Mostly localized on the left side.
Reports pain worse with deep inspiration, coughing or sneezing. Denies any fevers, chills, night sweats.
Denies any rash, arthritis, back pain.
She feels somewhat fatigued.
She has a known sick contact- had a cold recently.
Patient was taking antibiotics 2 weeks ago for tooth abscess.
Finished antibiotic 11/26/2023.
Patient was in the emergency room hemodynamically stable, afebrile. She had a mildly elevated D-dimer. CT chest was done. Found bilateral pleural effusion. We were consulted on 11/27/2023 for pleural effusion.
Past Medical History
Past Medical History: Other (See assessment and plan)
Social History
Tobacco: Non-smoker
Alcohol: None
Drug: None
Personal:
Living: With Family
Employment: Retired
Family History
Family History: Reviewed & Not Pertinent
Allergies / Home Medications
Allergies
Allergy/AdvReac Type Severity Reaction Status Date / Time
No Known Allergies Allergy Verified 11/26/23 13:44
Home Medications
�Medication �Instructions �Recorded �Confirmed �Last Taken �Type
Prevagen 1 tab PO DAILY Supplement 05/25/20 11/26/23 11/26/23 History
linaclotide 145 mcg capsule 145 mcg PO DAILY Gastrointestinal 05/25/20 11/26/23 11/26/23 History
(Linzess) Issue
metoprolol succinate 25 mg 25 mg PO DAILY Blood Pressure 05/25/20 11/26/23 11/26/23 History
tablet,extended release 24 hr
esomeprazole magnesium 20 mg 40 mg PO DAILY Gastrointestinal 07/11/22 11/26/23 11/26/23 History
capsule,delayed release (Nexium Issue
24HR)
aripiprazole 2 mg tablet 2 mg PO DAILY depression 04/22/23 11/26/23 11/26/23 History
cyanocobalamin (vitamin B-12) 1,000 mcg PO DAILY Supplement ##0 04/22/23 11/26/23 11/26/23 History
1,000 mcg tablet
escitalopram oxalate 20 mg tablet 20 mg PO DAILY depression 04/22/23 11/26/23 11/26/23 History
(Lexapro)
rosuvastatin 10 mg tablet (Crestor) 10 mg PO DAILY High Cholesterol 04/22/23 11/26/23 11/26/23 History
vitamins A,C,F-lmja-ymncrc 2,148 1 tab PO DAILY Supplement 04/22/23 11/26/23 11/26/23 History
mcg-113 mg-45 mg-17.4 mg tablet
(PreserVision AREDS)
celecoxib 200 mg capsule (Celebrex) 200 mg PO DAILY #0 caps 05/14/23 11/26/23 11/26/23 Rx
lisinopril 20 mg tablet 20 mg PO DAILY Blood Pressure #0 05/14/23 11/26/23 11/26/23 Rx
tabs
alprazolam 0.25 mg tablet 0.25 mg PO BID anxiety 11/26/23 11/26/23 11/26/23 History
mgjvgsbz-jbqh-tfnm 8 mg-folic 400 1 tab PO DAILY Supplement 11/26/23 11/26/23 11/26/23 History
mcg-K 50 mcg-lutein 300 mcg tablet
(Centrum Silver Women)
tramadol 50 mg tablet 50 mg PO TID pain 11/26/23 11/26/23 11/26/23 History
trazodone 50 mg tablet 50 mg PO HSPRN PRN insomnia 11/26/23 11/26/23 Unknown History
Review of Systems
-
History Source: Patient
All other systems: Negative unless noted
Vitals / Labs / Diagnostic Testing
Vital Signs
Temp Pulse Resp BP Pulse Ox
98.1 F 89 16 121/60 95
11/26/23 16:22 11/27/23 13:22 11/27/23 13:22 11/27/23 13:17 11/27/23 13:22
Lab Data
11/27/23 06:42
11/27/23 06:42
Diagnostic Testing:
Physical Exam
-
HEENT: Normocephalic
Cardiovascular: S1/S2
Respiratory: Clear and Non-Labored Respirations
GI: Soft and Non Distended
Neurology: Awake, AO x 3 and No Motor Deficits
Skin: Warm
General: Comfortable
Assessment
-
78-year-old woman who is a non-smoker, Came to the hospital complaining of pleuritic type chest pain for 1 day. Found to have bilateral pleural effusions on CT angiogram. We were consulted on 11/27/2023 for evaluation.
Patient does endorse contact with who was sick with a viral infection. She also recently completed a course of antibiotics for tooth abscess.
Bilateral pleural effusion on CAT scan
Increase inflammatory markers CRP/sedimentation rate
Normocytic anemia
Pleuritic type chest pain
Normocytic anemia
Conditions present prior admission:
Hypertension
GERD
Hypercholesterolemia
Right total shoulder arthroplasty
Hysterectomy last year for pelvic floor dysfunction
Multiple orthopedic surgeries, bilateral elbow replacement, right shoulder replacement, knee replacement.
History of positive HLA-B27. Have never seen rheumatology
Never smoker
Assessment and plan:
Multiple imaging of the chest reviewed including a CT of the chest from 01/14/2023 and most current from this admission. On the previous CAT scan there was no evidence of pleural effusion
-
CT chest 11/26/2023: Reviewed. Bilateral small pleural effusions left greater than right. Compressive atelectasis. No evidence for pulmonary disease.
Again, pleural effusions are new compared to January 2023.
-
Broad differential diagnosis:
Per interventional radiology noted no fluid to sample at this point.
Patient has recent contact with her who had a viral infection.
Increase sedimentation rate at 36
Increase CRP 144
Increase D-dimer
No peripheral eosinophilia.
Afebrile without leukocytosis.
Normal LFTs
Normal renal function
Normocytic anemia-unclear etiology
-
With increased inflammatory markers differential diagnosis is broad including viral pleuritis, connective tissue disease associated bilateral pleural effusions.
Patient has history of HLA [id number] in 2010.
-
Obtain MARISSA
Anti-CCP
Rheumatoid factor
ANCA antibodies
Check a UA
Obtain TSH/T4 (reports new constipation, weight gain, now with normocytic anemia)
Obtain proBNP
-
Symptomatic management for now
Okay to use NSAIDs for now. Also using tramadol as needed.
-
If workup is negative patient continues to have pleuritic type chest pain we can consider a short course of prednisone.
-
Hold on antibiotics-no strong evidence for bacterial infection at this point.
-
DVT prophylax-subcu Lovenox
-
Will follow
-
Dr. Glasgow extensively discussed with patient and family members at the bedside.
[2023-11-27 17:06] LABS: NT-proBNP 73.2 pg/ml
[2023-11-27] MEDS: LOVENOX 40 MG SC (17:17)
[2023-11-27 17:30] LABS: Rheumatoid Agglutinin Less Than 10 IU (<10 IU)
[2023-11-27] MEDS: SENOKOT-S 1 TABLET PO (17:56)
[2023-11-27 18:11] LABS: TSH 1.11 uIU/ml (0.47-4.68)
[2023-11-28 00:12] LABS: Free T4 1.23 ng/dl (0.78-2.19)
[2023-11-28] MEDS: DILAUDID 0.5 MG IV ×5 (03:43→22:55)
[2023-11-28 06:00] VITALS: BMI 28.9
[2023-11-28 06:09] LABS: % Basophils 0.3 % (0-2); % Eosinophils 4.5 % (0-6); % Immature Granulocytes 0.7 % (0-0.5); % Lymphocytes 15.2 % (20.5-51.1); % Monocytes 11.9 % (1.7-9.3); % Neutrophils 67.4 % (42.2-75.2); Absolute Eosinophils 0.4 10^3/uL (0-0.7); Absolute Immature Granulocytes 0.1 10^3/uL (0-0.05); Absolute Lymphocytes 1.4 10^3/uL (1.2-3.4); Absolute Monocytes 1.1 10^3/uL (0.1-0.6); Hematocrit 29.5 % (37.0-47.0); Hemoglobin 9.8 g/dL (12.0-16.0); Mean Corp Hgb Conc. 33.2 g/dL (33.0-37.0); Mean Corpuscular Hgb 28.4 pg (27.0-31.0); Mean Corpuscular Volume 85.5 fL (81.0-99.0); Mean Platelet Volume 9.2 fL (7.4-10.4); Nucleated Red Blood Cells % 0 %; Platelet Count 209 10^3/uL (130-400); Red Blood Cell Count 3.45 10^6/uL (4.20-5.40); Red Cell Dist. Width 14.6 % (11.5-14.5); White Blood Cell Count 8.9 10^3/uL (4.8-10.8)
[2023-11-28 07:12] LABS: ALT (SGPT) 14 U/L (0-35); AST (SGOT) 18 U/L (14-36); Albumin 3.5 g/dl (3.5-5.0); Alkaline Phosphatase 55 U/L (38-126); Blood Urea Nitrogen 17 mg/dl (7-17); Calcium 8.7 mg/dl (8.4-10.2); Carbon Dioxide 25 mmol/L (22-30); Chloride 96 mmol/L (98-107); Estimated Creatinine Clearance 45 ml/min; Glucose 117 mg/dl (70-99); Potassium 4.2 mmol/L (3.5-5.1); Sodium 131 mmol/L (135-145); Total Bilirubin 0.6 mg/dl (0.2-1.3); eGFR > 60.00
[2023-11-28 07:23] LABS: Hepatitis C Antibody Negative (Negative)
[2023-11-28 07:54] VITALS: BP 157/74
[2023-11-28] MEDS: ABILIFY 2 MG PO (08:58)
[2023-11-28] MEDS: TOPROL XL 25 MG PO (08:59)
[2023-11-28] MEDS: VITAMIN B-12 1000 MCG PO (08:59)
[2023-11-28] MEDS: LEXAPRO 20 MG PO (08:59)
[2023-11-28] MEDS: ZESTRIL 20 MG PO (08:59)
[2023-11-28] MEDS: PROTONIX 40 MG PO (08:59)
[2023-11-28] MEDS: XANAX 0.25 MG PO ×2 (08:59→20:49)
[2023-11-28] MEDS: CRESTOR 10 MG PO (10:16)
[2023-11-28] MEDS: LINZESS 145 MCG PO (10:16)
--- NOTE | 2023-11-28 12:42 | W.PN.PUL3 ---
Today's Communication / Plan
-
Start NSAIDs
Follow laboratory testing
Follow UA results
No indication for thoracentesis
Symptomatic management, suspect viral pleuritis.
Additional workup ongoing.
Assessment
-
78-year-old woman who is a non-smoker, Came to the hospital complaining of pleuritic type chest pain for 1 day. Found to have bilateral pleural effusions on CT angiogram. We were consulted on 11/27/2023 for evaluation.
Patient does endorse contact with who was sick with a viral infection. She also recently completed a course of antibiotics for tooth abscess.
Bilateral pleural effusion on CAT scan
Increase inflammatory markers CRP/sedimentation rate
Normocytic anemia
Pleuritic type chest pain
Normocytic anemia
Conditions present prior admission:
Hypertension
GERD
Hypercholesterolemia
Right total shoulder arthroplasty
Hysterectomy last year for pelvic floor dysfunction
Multiple orthopedic surgeries, bilateral elbow replacement, right shoulder replacement, knee replacement.
History of positive HLA-B27. Have never seen rheumatology
Never smoker
Assessment and plan:
Multiple imaging of the chest reviewed including a CT of the chest from 01/14/2023 and most current from this admission. On the previous CAT scan there was no evidence of pleural effusion
-
CT chest 11/26/2023: Bilateral small pleural effusions left greater than right. Compressive atelectasis. No evidence for pulmonary disease.
Again, pleural effusions are new compared to January 2023.
Chest ultrasound 11/28/2023: Reviewed showed no significant pleural effusion on the left amenable for thoracentesis.
-
Broad differential diagnosis: Reviewed with family members by Dr. Glasgow on 11/27/2023 and 11/28/2023.
Main complaint is pleuritic type chest pain. No oxygen requirement
Afebrile
Does not appear toxic
-
Patient has recent contact with her who had a viral infection.
Increase sedimentation rate at 36
Increase CRP 144
Increase S-vaemt-blxwo phase reactant. No pulmonary embolism on CAT scan.
No peripheral eosinophilia.
Normal LFTs
Normal renal function
Normocytic anemia-unclear etiology
Negative COVID
-
With increased inflammatory markers differential diagnosis is broad including viral pleuritis, connective tissue disease associated bilateral pleural effusions.
Patient has history of significant osteoarthritis. Multiple joint replacements throughout the years. Osteoarthritis hand deformities noted.
No rash on exam
Patient has history of HLA [id number] in 2010.
-
Obtain MARISSA
Anti-CCP
Rheumatoid factor negative.
ANCA antibodies
Check a UA-pain
Obtain TSH/T4 (reports new constipation, weight gain, now with normocytic anemia)-normal.
proBNP normal
-
Symptomatic management for now
Oka will start Motrin [id number].
Has been using IV hydromorphone. Hopefully can be weaned off. Defer to primary team.
Steroids may be necessary if all workup is negative and she does not respond to NSAIDs. Discussed with family members and patient.
-
If workup is negative patient continues to have pleuritic type chest pain we can consider a short course of prednisone.
-
Hold on antibiotics-no strong evidence for bacterial infection at this point.
-
DVT prophylax-subcu Lovenox
-
Will follow
-
Dr. Glasgow extensively discussed with patient and family members at the bedside On 11/27/2023 in the emergency room and 11/28/2023.
Recommend outpatient pulmonary follow-up after discharge. Information will be left in the chart.
Subjective Data
-
Date of Service:
Date of Service: November 28, 2023
Chief Complaint: Pulmonary Follow Up (Bilateral pleural effusion-pleuritic type chest pain)
Subjective:
Continues to report significant pleuritic type chest pain with deep inspiration and ambulation
Denies cough, wheezing or phlegm production
Denies any chills
Denies any GI or symptoms
Review of Systems
General: Fever (n)
Cardiopulmonary: Dyspnea (none at rest) and Dyspnea on Exertion (due to pleuritic chest pain)
GI: Abdominal Pain (n) and Nausea
Neuro: Headache (n)
Objective Data
Data Reviewed
Vital Signs / I&O / Oxygen:
Vital Signs
Temp Pulse Resp BP Pulse Ox
98.9 F 86 18 157/74 96
11/28/23 07:54 11/28/23 07:54 11/28/23 07:54 11/28/23 07:54 11/28/23 07:54
Intake and Output
11/27/23 11/28/23 11/29/23
06:59 06:59 06:59
Intake Total 120 / 120
Balance 120 / 120
SaO2 96
Nasal Cannula flow liters per 2
minute
Physical Exam
General: Comfortable
HEENT: Normocephalic
Cardiovascular: S1-S2 and Rub (n)
Respiratory: Crackles (Minimal bibasilar)
GI: Soft and Non Distended
Neurology: Alert, AO x 3 and No Motor Deficits
Skin: Warm
Labs/Micro/Reports
Lab Data
11/28/23 05:21
11/28/23 05:21
[2023-11-28] MEDS: MOTRIN 600 MG PO (13:31)
--- NOTE | 2023-11-28 13:48 | W.PN.HOSP.TC ---
Today's Communication/Plan
-
Motrin
try to decrease analgesics
once pain controlled, hopefully dc for outpt follow up
Assessment / Plan
Assessment / Plan
1. Pleural effusion - Bilateral loculated effusions. No obvious signs of systemic infection. No consolidation on CT scan and no PE. Infectious vs inflammatory effusion.
- pain control and supportive care for now
- IR consulted for diagnostic thoracentesis of the larger left effusion, was felt to be too small to aspirate
- blood cultures if febrile and initiate abx only if decompensating prior to studies
-WBC 10.4-->10.0-->8.9k/ESR 36/CRP 144
discussed with Pulmonary
believes this could even be viral. Conservative management for now. He is planning to start Motrin
Last mammogram was 2 yrs ago, no hx of cancer or inflammatory disease
2. Hypertension -
- continue lisinopril and metoprolol
3. GERD - ppi
4. Psych
- lexapro and aripiprazole for depression
DVT PPX - lovenox sq
Code Status - Full
Anticipated Discharge: 24 - 48 hours
Subjective/Interval History
-
Date of Service: November 28, 2023
Still with significant pleuritic pain, but may have lessened
Objective Data
-
Labs:
Laboratory Results
11/28/23
05:21
WBC 8.9
Hgb 9.8 L
Hct 29.5 L
Plt Count 209
Sodium 131 L
Potassium 4.2
Chloride 96 L
Carbon Dioxide 25
BUN 17
Creatinine 0.9
Glucose 117 H
Calcium 8.7
Total Bilirubin 0.6
AST 18
ALT 14
Alkaline Phosphatase 55
Vital Signs:
Vital Signs
Temp Pulse Resp BP Pulse Ox
98.9 F 86 18 157/74 96
11/28/23 07:54 11/28/23 07:54 11/28/23 07:54 11/28/23 07:54 11/28/23 07:54
I&O
11/27/23 11/28/23 11/29/23
06:59 06:59 06:59
Intake Total 120 / 120
Balance 120 / 120
Review of Systems
-
History Source: Patient and Coordinated Provider
Constitutional: Denies Fever
EENT: Reports No Symptoms Reported
Respiratory: Reports Trouble Breathing and Pleurisy
Cardiac: Reports No Symptoms; Denies Chest Pain
Abdomen/GI: Reports No Symptoms
Genitourinary: Reports No Symptoms
Physical Exam
-
General: Well Developed, Well Nourished and No Apparent Distress
HEENT: Normocephalic, Atraumatic and Moist Mucous Membranes
Respiratory: Non Labored Respirations (able to take deeper breaths today) and Decreased Breath Sounds (bibasilar)
Cardiac: Regular Rhythm and S1/S2
GI: Nontender and Nondistended
Musculoskeletal: No Clubbing, No Cyanosis and No Edema
[2023-11-28 13:54] LABS: Urine Albumin Negative (Neg - Trace); Urine Bilirubin Negative (Negative); Urine Character Clear (Clear); Urine Color Yellow; Urine Glucose Negative (Negative); Urine Ketone Negative (Negative); Urine Leukocyte Negative (Negative); Urine Nitrite Negative (Negative); Urine Occult Blood Negative (Negative); Urine Specific Gravity 1.015 (<1.030); Urine Urobilinogen Negative (Neg - 1+)
[2023-11-28 15:19] VITALS: BP 109/64
--- NOTE | 2023-11-28 15:51 | CM ---
Alert awake oriented patient who lives with her Dennis who lives in a 1 story home with 2 steps to enter.She is independent in driving and in all activities of daily living.Offered VN she declined.She is on oxygen 2 liters Pox 93%.
No adaptive devices
had [facility]/ No SNF
Pharmacy [facility]
PCP Dr Hung
PLAN Home no needs
[2023-11-28] MEDS: LOVENOX 40 MG SC (18:28)
[2023-11-28] MEDS: SENOKOT-S 1 TABLET PO (21:35)
[2023-11-28] MEDS: MOTRIN 400 MG PO (21:35)
[2023-11-28 23:58] VITALS: BP 115/55
[2023-11-29] MEDS: DILAUDID 0.5 MG IV ×4 (03:57→20:35)
[2023-11-29] MEDS: MOTRIN 400 MG PO ×3 (06:25→22:15)
[2023-11-29 08:05] VITALS: BP 149/72
[2023-11-29] MEDS: ZESTRIL 20 MG PO (08:11)
[2023-11-29] MEDS: TOPROL XL 25 MG PO (08:11)
[2023-11-29] MEDS: LEXAPRO 20 MG PO (08:11)
[2023-11-29] MEDS: PROTONIX 40 MG PO (08:12)
[2023-11-29] MEDS: ABILIFY 2 MG PO (08:12)
[2023-11-29] MEDS: VITAMIN B-12 1000 MCG PO (08:12)
[2023-11-29] MEDS: XANAX 0.25 MG PO ×2 (08:12→20:35)
[2023-11-29] MEDS: LINZESS 145 MCG PO (08:12)
[2023-11-29] MEDS: CRESTOR 10 MG PO (08:12)
[2023-11-29 09:06] LABS: Blood Urea Nitrogen 21 mg/dl (7-17); Calcium 9.4 mg/dl (8.4-10.2); Carbon Dioxide 25 mmol/L (22-30); Chloride 94 mmol/L (98-107); Estimated Creatinine Clearance 41 ml/min; Glucose 114 mg/dl (70-99); Potassium 4.2 mmol/L (3.5-5.1); Sodium 132 mmol/L (135-145); eGFR 58.39
[2023-11-29 09:08] LABS: % Basophils 0.6 % (0-2); % Eosinophils 5.7 % (0-6); % Immature Granulocytes 0.3 % (0-0.5); % Lymphocytes 22.6 % (20.5-51.1); % Monocytes 9.1 % (1.7-9.3); % Neutrophils 61.7 % (42.2-75.2); Absolute Basophils 0.1 10^3/uL (0-0.2); Absolute Eosinophils 0.5 10^3/uL (0-0.7); Absolute Monocytes 0.8 10^3/uL (0.1-0.6); Absolute Neutrophils 5.5 10^3/uL (1.4-6.5); Hematocrit 31.4 % (37.0-47.0); Hemoglobin 10.4 g/dL (12.0-16.0); Mean Corp Hgb Conc. 33.1 g/dL (33.0-37.0); Mean Corpuscular Hgb 28.5 pg (27.0-31.0); Mean Platelet Volume 9.2 fL (7.4-10.4); Nucleated Red Blood Cells % 0 %; Platelet Count 267 10^3/uL (130-400); Red Blood Cell Count 3.65 10^6/uL (4.20-5.40); Red Cell Dist. Width 14.6 % (11.5-14.5); White Blood Cell Count 8.9 10^3/uL (4.8-10.8)
[2023-11-29 09:18] LABS: Erythrocyte Sed Rate 59 mm/hour (0-20)
--- NOTE | 2023-11-29 12:28 | W.PN.HOSP.TC ---
Today's Communication/Plan
-
add steroids
continue Motrin and PPI
Assessment / Plan
Assessment / Plan
1. Pleural effusion - Bilateral loculated effusions. No obvious signs of systemic infection. No consolidation on CT scan and no PE. Infectious vs inflammatory effusion.
etiology remains unclear. Possible viral, will need follow up post dc
- pain control and supportive care for now
- IR consulted for diagnostic thoracentesis of the larger left effusion, was felt to be too small to aspirate
- blood cultures if febrile and initiate abx only if decompensating prior to studies
-WBC 10.4-->10.0-->8.9-->8.9k/ESR 36-->59/CRP 144-->216.9
discussed with Pulmonary
believes this could even be viral. Conservative management for now. Reviewed with Dr Rothman, will add steroids to the Motrin
Last mammogram was 2 yrs ago, no hx of cancer or inflammatory disease
2. Hypertension -
- continue lisinopril and metoprolol
3. GERD - ppi
4. Psych
- lexapro and aripiprazole for depression
Reviewed with dgt in room and showed her the CT scan of chest
DVT PPX - lovenox sq
Code Status - Full
Anticipated Discharge: 24 - 48 hours
Subjective/Interval History
-
Date of Service: November 29, 2023
Generally feels better, but still with sob on walking and pleuritic pain with deep breaths
Objective Data
-
Labs:
Laboratory Results
11/29/23
08:14
WBC 8.9
Hgb 10.4 L
Hct 31.4 L
Plt Count 267 D
Sodium 132 L
Potassium 4.2
Chloride 94 L
Carbon Dioxide 25
BUN 21 H
Creatinine 1.0
Glucose 114 H
Calcium 9.4
Vital Signs:
Vital Signs
Temp Pulse Resp BP Pulse Ox
98.4 F 82 18 149/72 93
11/29/23 08:05 11/29/23 08:11 11/29/23 08:05 11/29/23 08:11 11/29/23 08:05
I&O
11/28/23 11/29/23 11/30/23
06:59 06:59 06:59
Intake Total 120 / 120 960 / 960
Balance 120 / 120 960 / 960
Review of Systems
-
History Source: Patient and Coordinated Provider
Constitutional: Denies Fever
EENT: Reports No Symptoms Reported
Respiratory: Reports Trouble Breathing and Pleurisy
Cardiac: Reports No Symptoms; Denies Chest Pain
Abdomen/GI: Reports No Symptoms
Genitourinary: Reports No Symptoms
Physical Exam
-
General: Well Developed, Well Nourished and No Apparent Distress
HEENT: Normocephalic, Atraumatic and Moist Mucous Membranes
Respiratory: Clear to Auscultation (splinting decreased, but not resolved), Non Labored Respirations (able to take deeper breaths today) and Decreased Breath Sounds (bibasilar)
Cardiac: Regular Rhythm and S1/S2
GI: Nontender and Nondistended
Musculoskeletal: No Clubbing, No Cyanosis and No Edema
--- NOTE | 2023-11-29 13:13 | W.PN.PUL.V3 ---
Today's Communication / Plan
-
Wean oxygen
Antitussives
Add steroids
Outpatient pulmonary follow-up
Assessment
-
78-year-old woman who is a non-smoker, Came to the hospital complaining of pleuritic type chest pain for 1 day. Found to have bilateral pleural effusions on CT angiogram. We were consulted on 11/27/2023 for evaluation.
Patient does endorse contact with who was sick with a viral infection. She also recently completed a course of antibiotics for tooth abscess.
Bilateral pleural effusion on CAT scan
Increase inflammatory markers CRP/sedimentation rate
Normocytic anemia
Pleuritic type chest pain
Normocytic anemia
Conditions present prior admission:
Hypertension
GERD
Hypercholesterolemia
Right total shoulder arthroplasty
Hysterectomy last year for pelvic floor dysfunction
Multiple orthopedic surgeries, bilateral elbow replacement, right shoulder replacement, knee replacement.
History of positive HLA-B27. Have never seen rheumatology
Never smoker
Plan
Small bilateral pleural effusions are new radiographically compared to January 2023
Chest ultrasound 11/28/2023-not enough fluid for thoracentesis
Supplemental oxygen if needed
Assess discharge supplemental oxygen needs prior to discharge
Aspiration precautions
Nebulizers if needed-currently not bronchospastic
Antitussives
Nonsteroidals
Steroids added-if discharged in the next 24 hours discharge on prednisone 40 mg with fairly rapid taper-i.e. prednisone 40 mg daily for 3 days, then 30 mg daily for 3 days, 20 mg daily for 3 days and then 10 mg daily for 3 days
Increase sedimentation rate at 36
Increase CRP 144
Increase J-atamw-ssvnk phase reactant.
No pulmonary embolism on CAT scan.
No peripheral eosinophilia.
Normal LFTs
Normal renal function
Normocytic anemia-unclear etiology
Negative COVID
With increased inflammatory markers differential diagnosis is broad including viral pleuritis, connective tissue disease associated bilateral pleural effusions.
Patient has history of significant osteoarthritis. Multiple joint replacements throughout the years. Osteoarthritis hand deformities noted.
No rash on exam
Obtain MARISSA
Anti-CCP
Rheumatoid factor negative.
ANCA antibodies
Check a UA-pain
Obtain TSH/T4 (reports new constipation, weight gain, now with normocytic anemia)-normal.
Note: proBNP normal
Symptomatic management for now
Oka will start Motrin [id number].
Has been using IV hydromorphone. Hopefully can be weaned off. Defer to primary team.
Steroids may be necessary if all workup is negative and she does not respond to NSAIDs. Discussed with family members and patient.
Hold on antibiotics-no strong evidence for bacterial infection at this point.
DVT prophylax--on Lovenox
GI prophylaxis-on pantoprazole
Nutrition
Early mobilization
Reviewed with Dr. Valdivia
Dr. Glasgow extensively discussed with patient and family members at the bedside On 11/27/2023 in the emergency room and 11/28/2023.
Recommend outpatient pulmonary follow-up after discharge-information has been left on the chart
Subjective Data
-
Date of Service:
Date of Service: November 29, 2023
Chief Complaint: Pulmonary Follow Up (Bilateral pleural effusion-pleuritic type chest pain) and Dyspnea Follow Up
Subjective:
Feels the pleurisy has improved with nonsteroidals, no complaints of shortness of breath, productive cough or abdominal pain
Review of Systems
General: Other (Per HPI)
Objective Data
Data Reviewed
Vital Signs / I&O:
Vital Signs
Temp Pulse Resp BP Pulse Ox
98.4 F 82 18 149/72 93
11/29/23 08:05 11/29/23 08:11 11/29/23 08:05 11/29/23 08:11 11/29/23 08:05
Intake and Output
11/28/23 11/29/23 11/30/23
06:59 06:59 06:59
Intake Total 120 / 120 960 / 960
Balance 120 / 120 960 / 960
SaO2: 93
Nasal Cannula flow liters per minute: 2
Physical Exam
General: Respiratory Distress and Comfortable
HEENT: Normocephalic, Anicteric and Moist Mucous Membranes
Cardiovascular: Regular Rhythm and Rub (n)
Respiratory: Wheeze (n), Crackles (Minimal bibasilar), Rhonchi (n), Non-Labored Respirations, Accessory Resp Muscle Use (n) and Stridor (n)
GI: Soft and Non Distended
Neurology: Awake, Alert and No Motor Deficits
Skin: Warm, Good Color, Cyanosis (n) and Jaundice (n)
Labs/Micro/Reports
Lab Data
11/29/23 08:14
11/29/23 08:14
[2023-11-29] MEDS: DECADRON 4 MG IV ×2 (13:31→22:15)
[2023-11-29 15:35] VITALS: BP 134/66
[2023-11-29] MEDS: LOVENOX 40 MG SC (17:15)
[2023-11-29] MEDS: SENOKOT-S 1 TABLET PO (22:23)
[2023-11-29 23:27] VITALS: BP 108/66
[2023-11-30] MEDS: DECADRON 4 MG IV ×2 (05:51→14:11)
[2023-11-30] MEDS: MOTRIN 400 MG PO ×2 (05:51→14:11)
[2023-11-30] MEDS: DILAUDID 0.5 MG IV ×2 (06:03→10:55)
[2023-11-30 07:00] VITALS: BP 149/84
[2023-11-30 07:32] LABS: Erythrocyte Sed Rate 75 mm/hour (0-20)
[2023-11-30 07:54] LABS: % Basophils 0.1 % (0-2); % Eosinophils 0.1 % (0-6); % Immature Granulocytes 0.4 % (0-0.5); % Lymphocytes 10.6 % (20.5-51.1); % Monocytes 2.2 % (1.7-9.3); % Neutrophils 86.6 % (42.2-75.2); Absolute Monocytes 0.2 10^3/uL (0.1-0.6); Absolute Neutrophils 8.1 10^3/uL (1.4-6.5); Hematocrit 33.2 % (37.0-47.0); Hemoglobin 11.3 g/dL (12.0-16.0); Mean Corpuscular Volume 82.4 fL (81.0-99.0); Nucleated Red Blood Cells % 0 %; Red Blood Cell Count 4.03 10^6/uL (4.20-5.40); White Blood Cell Count 9.4 10^3/uL (4.8-10.8)
[2023-11-30] MEDS: LEXAPRO 20 MG PO (08:44)
[2023-11-30] MEDS: ZESTRIL 20 MG PO (08:44)
[2023-11-30] MEDS: LINZESS 145 MCG PO (08:44)
[2023-11-30] MEDS: XANAX 0.25 MG PO (08:44)
[2023-11-30] MEDS: ABILIFY 2 MG PO (08:44)
[2023-11-30] MEDS: PROTONIX 40 MG PO (08:44)
[2023-11-30] MEDS: VITAMIN B-12 1000 MCG PO (08:44)
[2023-11-30] MEDS: TOPROL XL 25 MG PO (08:44)
[2023-11-30] MEDS: CRESTOR 10 MG PO (08:44)
[2023-11-30 08:49] LABS: Blood Urea Nitrogen 21 mg/dl (7-17); Calcium 9.4 mg/dl (8.4-10.2); Carbon Dioxide 22 mmol/L (22-30); Chloride 97 mmol/L (98-107); Estimated Creatinine Clearance 45 ml/min; Glucose 186 mg/dl (70-99); Potassium 4.2 mmol/L (3.5-5.1); Sodium 134 mmol/L (135-145); eGFR > 60.00
--- NOTE | 2023-11-30 12:19 | W.PN.PUL.V3 ---
Today's Communication / Plan
-
Change ibuprofen to as needed
Prednisone taper
Stable for xtvnimtrn-nfhwvl-up with outpatient pulmonary
Assessment
-
78-year-old woman who is a non-smoker, Came to the hospital complaining of pleuritic type chest pain for 1 day. Found to have bilateral pleural effusions on CT angiogram. We were consulted on 11/27/2023 for evaluation.
Patient does endorse contact with who was sick with a viral infection. She also recently completed a course of antibiotics for tooth abscess.
Bilateral pleural effusion on CAT scan
Increase inflammatory markers CRP/sedimentation rate
Normocytic anemia
Pleuritic type chest pain
Normocytic anemia
Conditions present prior admission:
Hypertension
GERD
Hypercholesterolemia
Right total shoulder arthroplasty
Hysterectomy last year for pelvic floor dysfunction
Multiple orthopedic surgeries, bilateral elbow replacement, right shoulder replacement, knee replacement.
History of positive HLA-B27. Have never seen rheumatology
Never smoker
Plan
Respiratory status has improved-pleuritic pains much improved on nonsteroidals/steroids
Small bilateral pleural effusions are new radiographically compared to January 2023
Chest ultrasound 11/28/2023-not enough fluid for thoracentesis
Supplemental oxygen if needed-currently on room air
Assess discharge supplemental oxygen needs prior to discharge
Aspiration precautions
Nebulizers if needed-currently not bronchospastic
Antitussives
Nonsteroidals as needed
Steroids added-11/29/2023-changed to prednisone 40 mg with fairly rapid taper-i.e. prednisone 40 mg daily for 3 days, then 30 mg daily for 3 days, 20 mg daily for 3 days and then 10 mg daily for 3 days
Increase sedimentation rate at 36
Increase CRP 144
Increase O-wziqk-prbiv phase reactant.
No pulmonary embolism on CAT scan.
No peripheral eosinophilia.
Normal LFTs
Normal renal function
Normocytic anemia-unclear etiology
Negative COVID
With increased inflammatory markers differential diagnosis is broad including viral pleuritis, connective tissue disease associated bilateral pleural effusions.
Patient has history of significant osteoarthritis. Multiple joint replacements throughout the years. Osteoarthritis hand deformities noted.
No rash on exam
C-reactive protein 216
Obtain MARISSA
Anti-CCP
Rheumatoid factor negative.
ANCA antibodies
Obtain TSH/T4 (reports new constipation, weight gain, now with normocytic anemia)-normal.
Note: proBNP normal
Symptomatic management for now
Change ibuprofen to as needed
Hold on antibiotics-no strong evidence for bacterial infection at this point.
Blood sugars elevated likely due to steroids
Management per primary team
DVT prophylax--on Lovenox
GI prophylaxis-on pantoprazole
Nutrition
Early mobilization
Stable from a pulmonary perspective for discharge
Dr. Glasgow extensively discussed with patient and family members at the bedside On 11/27/2023 in the emergency room and 11/28/2023.
Recommend outpatient pulmonary follow-up after discharge-information has been left on the chart
Subjective Data
-
Date of Service:
Date of Service: November 30, 2023
Chief Complaint: Pulmonary Follow Up (Bilateral pleural effusion-pleuritic type chest pain) and Dyspnea Follow Up
Subjective:
Much improved, minimal pleurisy, feels the steroids have helped, no chest pain or abdominal pain
Review of Systems
General: Other (Per HPI)
Objective Data
Data Reviewed
Vital Signs / I&O:
Vital Signs
Temp Pulse Resp BP Pulse Ox
98.1 F 71 18 149/84 93
11/30/23 07:00 11/30/23 07:00 11/30/23 07:00 11/30/23 07:00 11/30/23 07:00
Intake and Output
11/29/23 11/30/23 12/01/23
06:59 06:59 06:59
Intake Total 960 / 960 600 / 600
Balance 960 / 960 600 / 600
SaO2: 93
Nasal Cannula flow liters per minute: 2
Physical Exam
General: Respiratory Distress and Comfortable
HEENT: Normocephalic, Anicteric and Moist Mucous Membranes
Cardiovascular: Regular Rhythm and Rub (n)
Respiratory: Wheeze (n), Crackles (Minimal bibasilar), Rhonchi (n), Non-Labored Respirations, Accessory Resp Muscle Use (n) and Stridor (n)
GI: Soft and Non Distended
Neurology: Awake, Alert and No Motor Deficits
Skin: Warm, Good Color, Cyanosis (n) and Jaundice (n)
Labs/Micro/Reports
Lab Data
11/30/23 05:31
11/30/23 07:40
[2023-11-30 13:00] VITALS: BP 133/76
--- NOTE | 2023-11-30 13:27 | W.PN.HOSP.TC ---
Today's Communication/Plan
-
dc to home
Assessment / Plan
Assessment / Plan
1. Pleural effusion - Bilateral loculated effusions. No obvious signs of systemic infection. No consolidation on CT scan and no PE. Infectious vs inflammatory effusion.
etiology remains unclear. Possible viral, will need follow up post dc
- pain control and supportive care for now
- IR consulted for diagnostic thoracentesis of the larger left effusion, was felt to be too small to aspirate
-WBC 10.4-->10.0-->8.9-->8.9-->9.4k/ESR 36-->59-->75/CRP 144-->216.9-->202.1
discussed with Pulmonary
believes this could even be viral. Conservative management for now. Reviewed with Dr Rothman, will add steroids to the Motrin
Last mammogram was 2 yrs ago, no hx of cancer or inflammatory disease
2. Hypertension -
- continue lisinopril and metoprolol
3. GERD - ppi
4. Psych
- lexapro and aripiprazole for depression
Cleared by Dr. Rothman to be dc, she is feeling much improved and is anxious for dc
DVT PPX - lovenox sq
Code Status - Full
dc to home
see dictated note
More than 30 minutes spent in discharge including
Final examination of the patient
Summarizing hospital stay
Instructions for continuing care to all relevant caregivers
Preparation of discharge records, prescriptions, and referral forms
Total time spent (in minutes): 45
Anticipated Discharge: Today
Subjective/Interval History
-
Date of Service: November 30, 2023
Feels much better, no pleuritic pain
Objective Data
-
Labs:
Laboratory Results
11/30/23 11/30/23
05:31 07:40
WBC 9.4
Hgb 11.3 L
Hct 33.2 L
Plt Count
Sodium Cancelled 134 L
Potassium Cancelled 4.2
Chloride Cancelled 97 L
Carbon Dioxide Cancelled 22
BUN Cancelled 21 H
Creatinine Cancelled 0.9
Glucose Cancelled 186 H
Calcium Cancelled 9.4
Vital Signs:
Vital Signs
Temp Pulse Resp BP Pulse Ox
98.1 F 71 18 149/84 93
11/30/23 07:00 11/30/23 07:00 11/30/23 07:00 11/30/23 07:00 11/30/23 12:19
I&O
11/29/23 11/30/23 12/01/23
06:59 06:59 06:59
Intake Total 960 / 960 600 / 600
Balance 960 / 960 600 / 600
Review of Systems
-
History Source: Patient and Coordinated Provider
Constitutional: Denies Fever
EENT: Reports No Symptoms Reported
Respiratory: Reports Trouble Breathing and Pleurisy
Cardiac: Reports No Symptoms; Denies Chest Pain
Abdomen/GI: Reports No Symptoms
Genitourinary: Reports No Symptoms
Physical Exam
-
General: Well Developed, Well Nourished and No Apparent Distress
HEENT: Normocephalic, Atraumatic and Moist Mucous Membranes
Respiratory: Clear to Auscultation (splinting resolved) and Non Labored Respirations (able to take deeper breaths today); Negative Decreased Breath Sounds (resolved)
Cardiac: Regular Rhythm and S1/S2
GI: Nontender and Nondistended
Musculoskeletal: No Clubbing, No Cyanosis and No Edema
[2023-11-30] MEDS: FLUAD (65 yr+) 2024-2025 FORMULA 0.5 ML IM (14:10)
--- NOTE | 2023-11-30 14:35 | W.DS.TRANS ---
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
-
Discharge Instructions:
Discharge Diagnosis/Procedures Pleurisy
Diet Regular
Activity As tolerated
Driving Restrictions Not until seen by your Dr
Bathing Restrictions None
Blood Work CBC, BMP, ESR in 1-2 weeks
Instructions:
Stand-Alone Forms:
Changes to Home Medications: Yes
Discharge Medications:
DC Medications w/original date entered in [employer]
Prevagen 1 tab PO DAILY Supplement 05/25/20
linaclotide 145 mcg capsule (Linzess) 145 mcg PO DAILY Constipation 05/25/20
metoprolol succinate 25 mg tablet,extended release 24 hr 25 mg PO DAILY Blood Pressure 05/25/20
esomeprazole magnesium 20 mg capsule,delayed release (Nexium 24HR) 40 mg PO DAILY Gastrointestinal Issue 07/11/22
aripiprazole 2 mg tablet 2 mg PO DAILY depression 04/22/23
cyanocobalamin (vitamin B-12) 1,000 mcg tablet 1,000 mcg PO DAILY Supplement ##0 04/22/23
escitalopram oxalate 20 mg tablet (Lexapro) 20 mg PO DAILY depression 04/22/23
rosuvastatin 10 mg tablet (Crestor) 10 mg PO DAILY High Cholesterol 04/22/23
vitamins A,C,D-cmjb-cjkfxt 2,148 mcg-113 mg-45 mg-17.4 mg tablet (PreserVision AREDS) 1 tab PO DAILY Supplement 04/22/23
celecoxib 200 mg capsule (Celebrex) 200 mg PO DAILY #0 caps 05/14/23
lisinopril 20 mg tablet 20 mg PO DAILY Blood Pressure #0 tabs 05/14/23
alprazolam 0.25 mg tablet 0.25 mg PO BID anxiety 11/26/23
vrnealiq-yfbv-ikwz 8 mg-folic 400 mcg-K 50 mcg-lutein 300 mcg tablet (Centrum Silver Women) 1 tab PO DAILY Supplement 11/26/23
tramadol 50 mg tablet 50 mg PO TID pain 11/26/23
trazodone 50 mg tablet 50 mg PO HSPRN PRN insomnia 11/26/23
prednisone 10 mg tablet 10 mg PO DIRECTED #30 tabs 11/30/23
Home Medication Changes
short course of Prednisone taper has been added
Pending Results: No
--- NOTE | 2023-11-30 15:14 | CM ---
patient stable for dc home with no needs.patient gave permission for cm to sign imm letter.family to transport patient home.
[2023-11-30 17:14] LABS: ds-DNA Ab, IgG Reflex To Titer 3 IU (0-24)
[2023-11-30 18:24] LABS: ANA, IgG Reflex to HEp-2 None Detected (None Detected)
[2023-11-30 18:27] LABS: CCP Antibody IgG/IgA 4 Units (0-19)
[2023-11-30 21:38] LABS: Myeloperoxidase Antibody 0 AU/mL (0-19); Serine Protease-3, IgG 0 AU/mL (0-19)
[2023-12-01 07:58] LABS: Scleroderma Antibody (Scl-70) 3 AU/mL (0-40)
== END 2023-11-30 14:34 | disposition home or self-care (01) | DRG 187 ==
LOC: 3 WEST ACU 20:26
PROVIDERS: Emergency Medicine; ADMITTING PHYSICIAN Internal Medicine; ATTENDING PHYSICIAN Internal Medicine; CONSULT PHYSICIAN Internal Medicine Critical Care Medicine; EMERGENCY PHYSICIAN Emergency Medicine; FAMILY PHYSICIAN Nurse Practitioner Primary Care
DX: J90 Pleural effusion, not elsewhere classified (principal); J98.11 Atelectasis; I10 Essential (primary) hypertension; K21.9 Gastro-esophageal reflux disease without esophagitis; F32.A Depression, unspecified; E78.00 Pure hypercholesterolemia, unspecified; Z96.611 Presence of right artificial shoulder joint; D64.9 Anemia, unspecified
CPT/HCPCS: 36415; 71275; 76604; 80048; 80053; 81003; 82040; 83516; 83615; 83880; 84155; 84439; 84443; 84478; 84484; 85025; 85027; 85379; 85652; 86038; 86140; 86200; 86225; 86235; 86430; 86803; 90662; 93005; 96374; 99285; G0008; Q9967

== ENCOUNTER → 2024-04-16 13:40 | Outpatient (REF) | payer MEDICARE, OTHER, SELFPAY | LOC: PAVMRI 13:40 | PROVIDERS: ATTENDING PHYSICIAN Physical Medicine & Rehabilitation; FAMILY PHYSICIAN Nurse Practitioner Primary Care | DX: M54.16 Radiculopathy, lumbar region (principal) | CPT/HCPCS: 72148 ==

== ENCOUNTER 2024-05-03 17:28 | Inpatient (IN) | payer MEDICARE, OTHER, SELFPAY ==
[2024-05-03] VITALS (14 sets, daily range): BP systolic 103–145; BP diastolic 59–87; PULSE 67–83; BMI 29.2; BMI 30.3
[2024-05-03 12:44] LABS: % Basophils 0.1 % (0-2); % Eosinophils 0.1 % (0-6); % Lymphocytes 9.7 % (20.5-51.1); % Neutrophils 83.1 % (42.2-75.2); Absolute Immature Granulocytes 0.2 10^3/uL (0-0.05); Absolute Monocytes 1.3 10^3/uL (0.1-0.6); Absolute Neutrophils 17.2 10^3/uL (1.4-6.5); Hematocrit 37.3 % (37.0-47.0); Hemoglobin 13.1 g/dL (12.0-16.0); Mean Corp Hgb Conc. 35.1 g/dL (33.0-37.0); Mean Corpuscular Hgb 27.5 pg (27.0-31.0); Mean Corpuscular Volume 78.2 fL (81.0-99.0); Mean Platelet Volume 8.6 fL (7.4-10.4); Nucleated Red Blood Cells % 0 %; Platelet Count 266 10^3/uL (130-400); Red Blood Cell Count 4.77 10^6/uL (4.20-5.40); Red Cell Dist. Width 14.8 % (11.5-14.5); White Blood Cell Count 20.7 10^3/uL (4.8-10.8)
[2024-05-03 13:01] LABS: ALT (SGPT) 21 U/L (0-35); AST (SGOT) 23 U/L (14-36); Albumin 4.6 g/dl (3.5-5.0); Alkaline Phosphatase 79 U/L (38-126); Blood Urea Nitrogen 17 mg/dl (7-17); Calcium 9.3 mg/dl (8.4-10.2); Carbon Dioxide 16 mmol/L (22-30); Chloride 89 mmol/L (98-107); Estimated Creatinine Clearance 41 ml/min; Glucose 185 mg/dl (70-99); Sodium 120 mmol/L (135-145); Total Bilirubin 0.9 mg/dl (0.2-1.3); Total Protein 7.1 g/dl (6.3-8.2); eGFR 58.39
[2024-05-03 13:09] LABS: Troponin I < 0.012 ng/ml
[2024-05-03] MEDS: NSS 1000 IV (13:27)
--- NOTE | 2024-05-03 13:35 | ED.GENMED ---
History of Present Illness
General
Chief Complaint: Fainting/Passed Out
Source: patient and family (Daughter who is in the ED at bedside)
Exam Limitations: none
Time Seen by Provider: 05/03/24 13:10
Nursing documentation reviewed up to this point in time: agreed with
History of Present Illness
History of Present Illness:
The patient is a pleasant 78-year-old female with a past medical history of high blood pressure and pancreatitis reports about 1 week of nausea and anorexia. Patient denies fever. She reports generalized weakness. Patient reports that she got
extremely lightheaded after sitting down in a kitchen chair and passed out while sitting in the chair. Patient reports she did not fall or hit her head. Patient states the nausea is so bad that she has not been able to eat and is lost several
pounds this week. She also reports mild mid upper abdominal pain but no vomiting. She has had no fever, cough, chest pain or shortness of breath. She denies diarrhea and rash. Patient reports that symptoms seem to occur 1 day after getting a
steroid injection in her hip. However, she denies hip pain.
Past History
Past History
ED Past Medical History: HTN and Other (IBS, diverticulitis, pancreatitis)
ED Past Surgical History: Orthopedic
Social History
Tobacco: Non-smoker
Alcohol: Occasional
Drug: None
Personal:
Living: with family
Employment: Other
Review of Systems
Review of Systems
Allergies reviewed?: Yes
All Other Systems: ROS reviewed and negative except as documented in HPI and ROS
Constitutional: Reports fatigue
EENT: Reports no symptoms
Respiratory: Reports no symptoms
Cardiac: Reports syncope
ABD/GI: Reports abdominal pain, nausea and anorexia
: Reports no symptoms
Musculoskeletal: Reports no symptoms
Skin: Reports no symptoms
Neurological: Reports no symptoms
Endocrine: Reports no symptoms
Hematologic/Lymphatic: Reports no symptoms
Psychiatric: Reports no symptoms
Phy Exam
Physical Exam
Physical Exam:
Physical Exam
General: Patient appears tired and pale
Neck: supple. no meningeal signs. normal psoterior pharynx
Heart: s1/s2 regular rate and rhythm, no murmur. equal radial pulses.
Lungs: no acute respiratory distress. clear bilaterally
Abdomen: normal bowel sounds. not tender. no CVAT
Neuro: alert and oriented. no focal neurological deficits
Skin: no rash
Psychiatric: well kept. interactive and cooperative
Extremities: no edema. no calf tenderness. negative homans. good distal pulses
Course
Orders/Labs/Results
Orders:
Orders
05/03/24 12:30
Electrocardiogram (*1) Stat
Reason for Study: Syncope
05/03/24 12:31
EKG- Treatment ONCE
05/03/24 12:32
CBC/With Diff [Complete Blood Count/With Diff] Urgent
Comprehensive Metabolic Panel Urgent
Lipase Urgent
Troponin I Urgent
05/03/24 13:11
0.9% Sodium Chloride 1000 ml [Nss] 1,000 ml IV BOLUS
05/03/24 13:27
Lactic Acid Urgent
05/03/24 13:32
Add On- LAB Urgent
Tests Added?: lipase
05/03/24 13:33
Urinalysis Reflex To Culture Urgent
Ondansetron Injectable [Zofran] 4 mg .ROUTE .STK-MED ONE
Ondansetron Injectable [Zofran] 4 mg IV NOW STA
05/03/24 13:34
CR Chest - 2 Views Urgent
Comment:
Reason For Exam: fatigue, syncope
US Abdomen Complete/Upper Urgent
Comment:
Reason For Exam: nausea, epig pain
Abnormal Lab Results
05/03/24 05/03/24
12:32 13:27
WBC 20.7 H 10^3/uL
(4.8-10.8)
MCV 78.2 L fL
(81.0-99.0)
RDW 14.8 H %
(11.5-14.5)
Abs Immat Gran (auto) 0.2 H 10^3/uL
(0-0.05)
Absolute Neuts (auto) 17.2 H 10^3/uL
(1.4-6.5)
Absolute Monos (auto) 1.3 H 10^3/uL
(0.1-0.6)
Immature Gran % 1.0 H %
(0-0.5)
Neutrophils % 83.1 H %
(42.2-75.2)
Lymphocytes % 9.7 L %
(20.5-51.1)
Sodium 120 L mmol/L
(135-145)
Chloride 89 L mmol/L
(98-107)
Carbon Dioxide 16 L mmol/L
(22-30)
Glucose 185 H mg/dl
(70-99)
Lactic Acid 2.1 H mmol/L
(0.7-2.0)
Lipase 583 H U/L
(23-300)
05/03/24 12:32
05/03/24 12:32
Vital Signs
Initial and Last Documented VS:
Initial Vital Signs
Temp Pulse Resp BP Pulse Ox
97.9 F 77 19 143/76 96
05/03/24 12:24 05/03/24 12:24 05/03/24 12:24 05/03/24 12:24 05/03/24 12:24
Last Documented Vital Signs
Temp Pulse Resp BP Pulse Ox
97.9 F 66 17 145/77 98
05/03/24 12:24 05/03/24 15:15 05/03/24 15:15 05/03/24 14:16 05/03/24 15:15
MDM/Problems Addressed
Differential Diagnosis Includes:
Acute dehydration, acute hyponatremia, acute anemia
MDM/Problems Addressed:
Patient reports acute nausea, generalized weakness and syncope
Chronic conditions affecting care:
Patient has a history of pancreatitis, which may be active at this time
Acute Exacerbation and/or Progression of Chronic Illness:
Patient may have acute pancreatitis
Acute Exacerbation and/or Progression of Chronic Illness: Other (Pancreatitis)
*Radiology
Radiology exam reviewed: preliminary read by ED provider (Chest x-ray read by me. No acute disease) and radiology read reviewed
*Pulse Oximetry
Patient hypoxic: no
*EKG
Interpreted by ED Provider?: Yes
Interpretation: abnormal
Comparison EKG: changes noted
Rate: normal
Rhythm: sinus
[place]: left axis deviation
Interval: normal interval
QRS Pattern: normal QRS
Ischemia: non-specific ST changes
*Property Utilization Officer Interpretation
Rate: normal
Interpretation: normal
Rhythm: sinus
*Critical Care Note
Total Time (30-74mins, 75-104mins- exclusive of procedures): 35 minutes
comment:
35 minutes of critical care given to the patient including reassessing her nausea, reviewing her prior admission last year, discussing the case with the hospitalist, reviewing her EKG, ultrasound report and chest x-ray.
Data Reviewed
Review of Other/Old Records Reveals: Discharge Summary (Discharge home reviewed from November 2023 when patient had bilateral pleural effusions with pleurisy)
Source: patient and family
ED Attending Note
-
Portions of this chart may have been created with voice recognition software.� Occasional wrong word or��sound alike� substitutions may have occurred due to the inherent limitations of voice recognition software.
Discharge Plan
Departure
Patient Disposition: Admit
Date of Disposition: 05/03/24
Time of Disposition: 15:50
Admit to: Telemetry
Presentation/result/management discussed w/ accepting MD/DO: Hospitalist
Patient with high blood pressure during this ER visit?: Yes
Condition: Good
Covid-19: Not Applicable
Discharge Problem:
Acute pancreatitis, Acute lymphocytosis, Orthostatic syncope, Acute hyponatremia
Prescriptions:
No Action
metoprolol succinate 25 MG tablet extended release 24 hr
25 mg PO DAILY
Linzess 145 MCG capsule
145 mcg PO DAILY
Prevagen
1 tab PO DAILY
esomeprazole magnesium [Nexium 24HR] 20 MG capsule,delayed release(DR/EC)
40 mg PO DAILY
cyanocobalamin (vitamin B-12) 1,000 mcg Tablet
1,000 mcg PO DAILY Qty: 0
escitalopram oxalate [Lexapro] 20 mg Tablet
20 mg PO DAILY
PreserVision AREDS 2,148 mcg-113 mg-45 mg-17.4mg Tablet
1 tab PO DAILY
rosuvastatin [Crestor] 10 mg Tablet
10 mg PO DAILY
aripiprazole 2 mg Tablet
2 mg PO DAILY
celecoxib [Celebrex] 200 mg Capsule
200 mg PO DAILY Qty: 0 0RF
Rx Instructions:
Home medication.
Take with food.
DO NOT take within 2 hours of Aspirin.
lisinopril 20 MG tablet
20 mg PO DAILY Qty: 0 0RF
tramadol 50 mg Tablet
50 mg PO TID
Patient Comments:
11/26/2023: last filled 11/06/23, 90 tabs for 30 days from [facility]
Centrum Silver Women 8 mg iron-400 mcg-50 mcg Tablet
1 tab PO DAILY
alprazolam 0.25 mg tablet
0.25 mg PO BID
Patient Comments:
11/26/2023: last filled 10/31/23, 60 tabs for 30 days from [facility]
trazodone 50 mg tablet
50 mg PO HSPRN PRN (Reason: insomnia)
prednisone 10 mg tablet
10 mg PO DIRECTED Qty: 30 0RF
Rx Instructions:
4 tabs x 3days, 3 tabs x 3 days, 2 tab x 3 days, 1 tab x 3 days, then stop
Referrals:
Kajal Malik CRNP [Family Provider] -
Interventions
Interventions:
*General Assessment Last Done: 05/03/24 12:38
*Neglect/Abuse Screening Last Done: 05/03/24 12:38
*ED- Fall Risk Assessment Last Done: 05/03/24 12:38
*ED COVID-19 Vaccine History Last Done: 05/03/24 12:38
ED- Cardiac Assessment Last Done: 05/03/24 12:38
ED- Neurological Assessment Last Done: 05/03/24 12:38
Discharge Date and Time
Print Language: HAITIAN
[2024-05-03] MEDS: ZOFRAN 4 MG IV (13:37)
[2024-05-03 13:55] LABS: Lactic Acid 2.1 mmol/L (0.7-2.0)
[2024-05-03 14:46] LABS: Lipase 583 U/L (23-300)
--- NOTE | 2024-05-03 16:57 | HPS.HSE ---
Family Physician
-
Family Physician: Kajal Malik
Chief Complaint
-
Persistent Nausea, Syncope
History of Present Illness
Patient is a 78 y/o female past medical history of hypertension, hyperlipidemia, anxiety/depression, irritable bowel syndrome and chronic hyponatremia who presents with persistent nausea and a syncopal episode today. Patient reports about 10 days
ago she started feeling unwell with nausea, anorexia and abdominal discomfort. Patient reports she has been able to tolerate small amounts of water and Gatorade at home. She reports yesterday she tried to eat some eggs and shortly afterwards
abdominal discomfort became acutely worse. Today she was sitting at the kitchen table when she developed lightheadedness and then passed out. She denies fevers. She denies diarrhea.
Medical History
Past Medical History
Past Medical History: Reports Other
Additional Past Medical History:
Essential Hypertension
Hyperlipidemia
Anxiety / Depression
Chronic Hyponatremia
Irritable Bowel Syndrome
GERD
Spinal Stenosis
Osteoarthritis
Past Surgical History: Reports Other
Additional Past Surgical History:
Hysterectomy
Right Total Shoulder Arthroplasty
Bilateral Elbow Replacements
Right Total Knee Replacement
Social History
Tobacco: Non-smoker
Alcohol: None
Family History
Family History: Not pertinent
Allergies / Home Medications
Allergies reflects when Allergies were last updated in [employer].
Home Medications with original date entered in [employer]
Allergy/Medication List:
Allergies
Allergy/AdvReac Type Severity Reaction Status Date / Time
No Known Allergies Allergy Verified 11/26/23 13:44
Home Medications
Prevagen 1 cap PO DAILY Supplement 05/25/20
linaclotide 145 mcg capsule (Linzess) 145 mcg PO DAILY Constipation 05/25/20
metoprolol succinate 25 mg tablet,extended release 24 hr 25 mg PO DAILY Blood Pressure 05/25/20
cyanocobalamin (vitamin B-12) 1,000 mcg tablet 1,000 mcg PO DAILY Supplement ##0 04/22/23
escitalopram oxalate 20 mg tablet (Lexapro) 20 mg PO DAILY depression 04/22/23
rosuvastatin 10 mg tablet (Crestor) 10 mg PO DAILY High Cholesterol 04/22/23
vitamins A,C,B-gdfa-mgrofn 2,148 mcg-113 mg-45 mg-17.4 mg tablet (PreserVision AREDS) 1 tab PO DAILY Supplement 04/22/23
celecoxib 200 mg capsule (Celebrex) 200 mg PO DAILY #0 caps 05/14/23
lisinopril 20 mg tablet 20 mg PO DAILY Blood Pressure #0 tabs 05/14/23
alprazolam 0.25 mg tablet 0.25 mg PO BID anxiety 11/26/23
tramadol 50 mg tablet 50 mg PO TID pain 11/26/23
docusate sodium 100 mg capsule (Colace) 100 mg PO DAILYPRN PRN constipation 05/03/24
esomeprazole magnesium 40 mg capsule,delayed release 40 mg PO DAILY 05/03/24
ondansetron HCl 4 mg tablet 4 mg PO Q8HPRN PRN nausea 05/03/24
therapeutic multivitamin 1 tab PO DAILY 05/03/24
Review of Systems
-
A 12 point ROS was completed and negative except as noted: Yes
Constitutional: Denies Fever
Respiratory: Denies Cough or Trouble Breathing
Cardiac: Denies Chest Pain or Palpitations
Abdomen/GI: Reports See HPI
Physical Exam
Vital Signs
Vital Signs
Temp Pulse Resp BP Pulse Ox
97.9 F 66 17 145/77 98
05/03/24 12:24 05/03/24 15:15 05/03/24 15:15 05/03/24 14:16 05/03/24 15:15
Physical Exam
General: Comfortable and Conversant
HEENT: Anicteric and Moist mucous membranes
Respiratory: Clear and Non Labored Respirations
Cardiac: S1/S2 and Regular Rhythm
GI: Soft and Tender (Mild tenderness of palpitation epigastric abdominal pain without rebound or guarding)
Rectal: Deferred by Provider
Musculoskeletal: No Clubbing, No Cyanosis and No Edema
Skin: Warm and Dry
Neuro: Awake, Alert, Oriented and Nonfocal/grossly intact
Psych: Calm
Laboratory Results
-
05/03/24 12:32
05/03/24 12:32
Laboratory Results
Lactic Acid 2.1 mmol/L (0.7-2.0) H 05/03/24 13:27
Total Bilirubin 0.9 mg/dl (0.2-1.3) 05/03/24 12:32
AST 23 U/L (14-36) 05/03/24 12:32
ALT 21 U/L (0-35) 05/03/24 12:32
Alkaline Phosphatase 79 U/L (38-126) 05/03/24 12:32
Troponin I < 0.012 ng/ml 05/03/24 12:32
Lipase 583 U/L (23-300) H 05/03/24 12:32
Data Reviewed
-
Ultrasound: Report Reviewed by me
Lab Data: Labs Reviewed by me
Impression/Plan
-
Acute on Chronic Hyponatremia (Baseline sodium ~134)
-Patient is volume depletion following very limited oral intake for past 10 days
-Continue IVFs
-Recheck sodium level later tonight and in AM
Metabolic Acidosis
-Give amp of sodium bicarb now
-Continue IVFs
-Recheck labs in AM
Persistent Nausea, unclear etiology, possibly related to pancreatitis vs gastritis
-Lipase level is mildly elevated
-Check Abd/Pelvis CT Scan
-Continue NPO/IVFs
-Continue Protonix
-Hold Celebrex
Syncope, likely volume related
-Check orthostatic VS
-Monitor on Telemetry
Essential Hypertension
-Continue lisinopril and metoprolol with hold parameters
Hyperlipidemia
-Continue Crestor
Anxiety / Depression
-Continue alprazolam
-Continue Lexapro
Irritable Bowel Syndrome
-Continue Linzess
Spinal Stenosis
Osteoarthritis
-Celebrex on hold as above
DV proph: Lovenox
Code Status: Full Code
--- NOTE | 2024-05-03 17:37 | W.PN.UPDATE ---
Update Note
Progress Note Update
This is an addendum to the H&P written by Ivette Choi on 05/03/2024.� Patient seen and examined independently with PA.
78-year-old female past medical history of prior gallstone pancreatitis, pleural effusions, hypertension, anxiety/depression, hyperlipidemia, osteoarthritis, chronic hyponatremia, IBS-C, here for ongoing nausea, decreased p.o. intake, mild
epigastric pain for 10 days and syncopal episode today
Blood pressure unremarkable.
Labs show sodium of 120.� Leukocytosis of 20.� Lipase of 580.� Bicarb of 16.
Abdominal ultrasound shows moderate diffuse liver disease, no evidence of cholelithiasis or biliary obstruction.
Unclear etiology of symptoms.� Check CT abdomen pelvis to evaluate for acute pancreatitis.
Syncopal episode likely secondary to decreased p.o. intake.� Hyponatremia and metabolic acidosis secondary to decreased solute intake.
N.p.o., IV fluids, check CT abdomen pelvis, Zofran.�
[2024-05-03 17:45] LABS: Triglycerides 111 mg/dl (10-149)
[2024-05-03 17:52] LABS: Urine Albumin 3+ (Neg - Trace); Urine Bilirubin Negative (Negative); Urine Character Clear (Clear); Urine Color Yellow; Urine Glucose Negative (Negative); Urine Ketone Negative (Negative); Urine Leukocyte 3+ (Negative); Urine Nitrite Negative (Negative); Urine Occult Blood 1+ (Negative); Urine Urobilinogen Negative (Neg - 1+)
[2024-05-03] MEDS: SODIUM BICARBONATE 50 MEQ IV (17:54)
[2024-05-03 17:59] LABS: Sodium 123 mmol/L (135-145)
[2024-05-03 18:00] LABS: Urine Bacteria Few (Negative); Urine Red Blood Cell 0-2 /HPF (0-2); Urine White Cell 16-20 /HPF (0-5)
[2024-05-03 18:03] LABS: Osmolality Urine 197 mOsm/kg (300-900)
[2024-05-03 18:13] LABS: Urine Sodium 12 mmol/L (30-90)
[2024-05-03] MEDS: PROTONIX IV 40 MG IV (22:29)
[2024-05-03] MEDS: LR 1000 IV (22:29)
[2024-05-03] MEDS: NSS (PRESERVATIVE FREE) 10 ML IV (22:29)
[2024-05-03] MEDS: LOVENOX 40 MG SC (22:30)
[2024-05-03] MEDS: XANAX PO (23:00)
[2024-05-04] VITALS (8 sets, daily range): BP systolic 125–158; BP diastolic 71–90; PULSE 73–85
[2024-05-04 01:27] LABS: Blood Urea Nitrogen 15 mg/dl (7-17); Calcium 8.9 mg/dl (8.4-10.2); Carbon Dioxide 26 mmol/L (22-30); Chloride 98 mmol/L (98-107); Estimated Creatinine Clearance 43 ml/min; Glucose 117 mg/dl (70-99); Potassium 4.5 mmol/L (3.5-5.1); Sodium 128 mmol/L (135-145); eGFR > 60.00
[2024-05-04] MEDS: LR 1000 IV ×2 (06:13→15:38)
[2024-05-04 06:54] LABS: Hematocrit 34.6 % (37.0-47.0); Hemoglobin 11.7 g/dL (12.0-16.0); Mean Corp Hgb Conc. 33.8 g/dL (33.0-37.0); Mean Corpuscular Volume 79.9 fL (81.0-99.0); Platelet Count 210 10^3/uL (130-400); Red Blood Cell Count 4.33 10^6/uL (4.20-5.40); Red Cell Dist. Width 15.2 % (11.5-14.5); White Blood Cell Count 10.4 10^3/uL (4.8-10.8)
[2024-05-04 07:09] LABS: Blood Urea Nitrogen 14 mg/dl (7-17); Calcium 8.9 mg/dl (8.4-10.2); Carbon Dioxide 23 mmol/L (22-30); Chloride 99 mmol/L (98-107); Estimated Creatinine Clearance 38 ml/min; Glucose 107 mg/dl (70-99); Potassium 4.2 mmol/L (3.5-5.1); Sodium 131 mmol/L (135-145); eGFR 58.39
[2024-05-04] MEDS: PROTONIX IV 40 MG IV ×2 (07:56→21:09)
[2024-05-04] MEDS: NSS (PRESERVATIVE FREE) 10 ML IV ×2 (07:58→21:09)
[2024-05-04] MEDS: XANAX 0.25 MG PO (07:58)
[2024-05-04] MEDS: LEXAPRO 20 MG PO (07:58)
[2024-05-04] MEDS: CRESTOR 10 MG PO (07:58)
[2024-05-04] MEDS: LINZESS 145 MCG PO (07:58)
[2024-05-04] MEDS: ZESTRIL 20 MG PO (08:01)
[2024-05-04] MEDS: TOPROL XL 25 MG PO (08:01)
--- NOTE | 2024-05-04 12:40 | W.PN.HOSP.TC ---
Addendum entered and electronically signed by Najma Alvares MD 05/04/24 19:36:
I saw and evaluated the patient independently. I reviewed the resident�s note and agree with findings and plan as documented by Dr. Schaffer.
GENERAL: well developed, well nourished, female in no apparent distress
HEENT: NC/AT--no O2 requirements
HEART: regular rate and rhythm, +S1, +S2, 2/6 LONG
LUNGS : clear to auscultation bilaterally
ABDOM: soft, nontender, nondistended, + bowel sounds
EXT: no cyanosis, clubbing, or edema
NEUROLOGIC: apparent dementia vs depression
Acute on Chronic Hyponatremia (Baseline sodium ~134)--NA 120 on admission�now improving, 131 today--Urine OSM and NA low, consistent with excess free water intake or SIADH vs SSRI med--check TSH, cortisol--renal consult--maybe pt needs standing salt
tabs?
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
Metabolic Acidosis, normal anion gap on admission�s/p bicarb in ED and fluid resuscitation with 2L followed by IV NS maintenance fluids�Unclear etiology. Possibly due to recent episode of diarrhea (resolved prior to admission)-Lactate minimally
elevated on admission 2.1 --> normalized when repeated overnight
Nausea/epigastric pain�resolved--Lipase MILDLY elevated on admission and CT not consistent with pancreatitis--Abdominal ultrasound showed moderate diffuse liver disease, no evidence of cholelithiasis or biliary obstruction--Continue Protonix and
symptomatic treatment--Hold home Celebrex given potential gastritis.
Leukocytosis 20.7 on admission�afebrile, no signs of infection. Resolved, 10.4 today.
?Syncope prior to admission (no head injury), possibly due to orthostasis or vasovagal--EKG on admission normal sinus rhythm--Orthostatic vital signs on admission showed SBP 126, 103, 111 (supine, sitting, standing)--No further syncopal episodes, no
focal neurologic deficits--Repeat orthostatic vital signs, encourage oral intake, continue to monitor--PT/OT
Essential Hypertension--Continue lisinopril and metoprolol with hold parameters
Abnormal UA�was suspicious for UTI, urine culture pending. Asymptomatic�will defer antibiotics at this time.
Hyperlipidemia-Continue home statin
Anxiety/Depression-Continue home alprazolam and escitalopram. Will reevaluate for discontinuation of escitalopram if highly suspicious of SIADH causing her hyponatremia.
Irritable Bowel Syndrome--Continue home Linzess
Spinal Stenosis/Osteoarthritis--hold home Celebrex given above. Not complaining of any pain at this time. Reevaluate as needed.
Code Status--Full Code
DVT proph--Lovenox
Original Note:
Today's Communication/Plan
-
Will discuss with nephrology. See plan.
Assessment / Plan
Assessment / Plan
78-year-old female with past medical history of chronic hyponatremia, gallstone pancreatitis, IBS who presents to ED for nausea, anorexia, mild epigastric pain for 10 days. On day of admission, she had a syncopal episode while sitting at the
kitchen table. Labs on admission were notable for leukocytosis WBC 20.7, hyponatremia NA 120, lipase of 583.
Acute on Chronic Hyponatremia (Baseline sodium ~134)
-NA 120 on admission�now improving, 131 today
-Urine OSM and NA low, consistent with excess free water intake or SIADH.
- Will check TSH (normal in November 2023) and a.m. cortisol
-Consider nephrology consult given the chronicity of this problem. she was instructed by PCP to follow-up with nephrology outpatient but she has not.
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
Metabolic Acidosis, normal anion gap 15 on admission
�s/p bicarb in ED and fluid recuscitation with 2L followed by IV NS maintenance fluids
�Unclear etiology. Possibly due to recent episode of diarrhea (resolved prior to admission)
-Lactate minimally elevated on admission 2.1 --> normalized when repeated overnight
Nausea/epigastric pain�resolved
-Lipase MILDLY elevated on admission and CT not consistent with pancreatitis
-Abdominal ultrasound showed moderate diffuse liver disease, no evidence of cholelithiasis or biliary obstruction
-Continue Protonix and symptomatic treatment.
-Hold home Celebrex given potential gastritis.
Leukocytosis 20.7 on admission�afebrile, no signs of infection. Resolved, 10.4 today.
?Syncope prior to admission (no head injury), possibly due to orthostasis or vasovagal
-EKG on admission normal sinus rhythm
-Orthostatic vital signs on admission showed SBP 126, 103, 111 (supine, sitting, standing)
-No further syncopal episodes, no focal neurologic deficits
-Repeat orthostatic vital signs, encourage oral intake, continue to monitor
Essential Hypertension-Continue lisinopril and metoprolol with hold parameters
Abnormal UA�was suspicious for UTI, urine culture pending. Asymptomatic�will defer antibiotics at this time.
Hyperlipidemia-Continue home statin
Anxiety / Depression-Continue home alprazolam and escitalopram. Will reevaluate for discontinuation of escitalopram if highly suspicious of SIADH causing her hyponatremia.
Irritable Bowel Syndrome-Continue home Linzess
Spinal Stenosis
Osteoarthritis-hold home Celebrex given above. Not complaining of any pain at this time. Reevaluate as needed.
Code Status: Full Code
Diet: Low residue
DVT prophylaxis Lovenox
Dispo planning: Pending clinical course
Anticipated Discharge: > 48 hours
Subjective/Interval History
-
Date of Service: May 04, 2024
No acute events overnight. This morning she reported reports improvement in abdominal pain and nausea. She reports fatigue and poor oral intake due to lack of appetite. ROS negative�denies lightheadedness, dizziness, chest pain, shortness of
breath, vomiting, diarrhea, constipation.
Objective Data
-
Labs:
Laboratory Results
05/04/24 05/04/24
01:02 06:01
WBC 10.4
Hgb 11.7 L
Hct 34.6 L
Plt Count 210 D
Sodium 128 L 131 L
Potassium 4.5 4.2
Chloride 98 99
Carbon Dioxide 26 23
BUN 15 14
Creatinine 0.9 1.0
Glucose 117 H 107 H
Calcium 8.9 8.9
Vital Signs:
Vital Signs
Temp Pulse Resp BP Pulse Ox
98.5 F 73 18 155/85 98
05/04/24 11:09 05/04/24 11:09 05/04/24 11:09 05/04/24 11:09 05/04/24 11:09
I&O
05/03/24 05/04/24 05/05/24
06:59 06:59 06:59
Intake Total 1000 / 1000
Balance 1000 / 1000
Review of Systems
-
History Source: Patient
All other systems: Reviewed and negative
Physical Exam
-
General: No Apparent Distress and Comfortable; Negative Pain, Fever, Chills or Sweats
HEENT: Normocephalic, Atraumatic and Moist Mucous Membranes
Respiratory: Clear to Auscultation and Non Labored Respirations; Negative Wheezes, Rales, Rhonchi or Crackles
Cardiac: Regular Rhythm and S1/S2; Negative Murmur
GI: Soft, Nondistended and Tender (Mild TTP diffusely)
Musculoskeletal: No Clubbing, No Cyanosis and No Edema
Skin: Warm and Dry
Neuro: Awake, Alert and Nonfocal/Grossly Intact
Psych: Calm
Data Reviewed
-
Diagnostic Radiology: Image personally visualized and interpreted and Report Reviewed by me
CT Scan: Image personally visualized and interpreted and Report Reviewed by me
Ultrasound: Report Reviewed by me
Labs: Labs Reviewed by me, Discussed with Physician and Discussed with Patient
Old Records: Reviewed
--- NOTE | 2024-05-04 15:12 | CM ---
Patient seen at bedside with physicians in [facility]. Patient resides with her spouse in a one story home with two steps to enter. The patient reports no DME/SNF in the past, but has had [facility] in the past. The patient confirmed her pharmacy of choice
is [facility] and patient PCP is Dr. Hung. Patient daughter Michell indicated that patient is primary caregiver for her , daughter's step father who has Dementia. Patient is able to be alone for some periods of time, family assisting with
caregiving. CM continues to be available to patient/family and is monitoring medical plan for needs at discharge.
Plan;home with VN vs home with no needs; watch for home care/resource needs
[2024-05-04] MEDS: LOVENOX 40 MG SC (17:11)
[2024-05-04] MEDS: XANAX PO (21:09)
[2024-05-05] VITALS (7 sets, daily range): BP systolic 147–163; BP diastolic 78–93; PULSE 70–78
[2024-05-05] MEDS: LR 1000 IV (00:05)
[2024-05-05 07:22] LABS: Hematocrit 33.1 % (37.0-47.0); Hemoglobin 11.3 g/dL (12.0-16.0); Mean Corp Hgb Conc. 34.1 g/dL (33.0-37.0); Mean Corpuscular Hgb 27.4 pg (27.0-31.0); Mean Corpuscular Volume 80.3 fL (81.0-99.0); Mean Platelet Volume 9.5 fL (7.4-10.4); Platelet Count 184 10^3/uL (130-400); Red Blood Cell Count 4.12 10^6/uL (4.20-5.40); Red Cell Dist. Width 15.5 % (11.5-14.5); White Blood Cell Count 9.1 10^3/uL (4.8-10.8)
[2024-05-05 08:00] LABS: Blood Urea Nitrogen 14 mg/dl (7-17); Calcium 8.8 mg/dl (8.4-10.2); Carbon Dioxide 22 mmol/L (22-30); Chloride 100 mmol/L (98-107); Estimated Creatinine Clearance 48 ml/min; Glucose 102 mg/dl (70-99); Potassium 4.3 mmol/L (3.5-5.1); Sodium 132 mmol/L (135-145); eGFR > 60.00
[2024-05-05 08:25] LABS: Cortisol, Random 18.7 ug/dl; TSH Reflex To Free T4 0.33 uIU/ml (0.47-4.68)
[2024-05-05 08:53] LABS: Free T4 1.69 ng/dl (0.78-2.19)
[2024-05-05] MEDS: LEXAPRO 20 MG PO (09:14)
[2024-05-05] MEDS: ZESTRIL 20 MG PO (09:14)
[2024-05-05] MEDS: XANAX 0.25 MG PO ×2 (09:14→20:51)
[2024-05-05] MEDS: TOPROL XL 25 MG PO (09:14)
[2024-05-05] MEDS: CRESTOR 10 MG PO (09:14)
[2024-05-05] MEDS: MIRALAX 17 GRAMS PO (09:15)
[2024-05-05] MEDS: LINZESS 145 MCG PO (09:15)
[2024-05-05] MEDS: PROTONIX 40 MG PO (09:15)
[2024-05-05] MEDS: PROTONIX IV IV (09:18)
[2024-05-05] MEDS: NSS (PRESERVATIVE FREE) IV (09:18)
--- NOTE | 2024-05-05 10:32 | W.PN.HOSP.TC ---
Addendum entered and electronically signed by Najma Alvares MD 05/05/24 18:27:
I saw and evaluated the patient independently. I reviewed the resident�s note and agree with findings and plan as documented by Dr. Schaffer.
GENERAL: well developed, well nourished, female in no apparent distress
HEENT: NC/AT--no O2 requirements
HEART: regular rate and rhythm, +S1, +S2, 2/6 LONG
LUNGS : clear to auscultation bilaterally
ABDOM: soft, nontender, nondistended, + bowel sounds
EXT: no cyanosis, clubbing, or edema
NEUROLOGIC: apparent dementia vs depression vs Parkinson's?
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
renal--TSH, cortisol both WNL--also needs to eat more protein
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
Metabolic Acidosis, normal anion gap on admission�s/p bicarb in ED and fluid resuscitation with 2L followed by IV NS maintenance fluids�Unclear etiology. Possibly due to recent episode of diarrhea (resolved prior to admission)-Lactate minimally
elevated on admission 2.1 --> normalized when repeated overnight
Nausea/epigastric pain�resolved--Lipase MILDLY elevated on admission and CT not consistent with pancreatitis--Abdominal ultrasound showed moderate diffuse liver disease, no evidence of cholelithiasis or biliary obstruction--Continue Protonix and
symptomatic treatment--Hold home Celebrex given potential gastritis.
Leukocytosis 20.7 on admission�afebrile, no signs of infection. Resolved, 10.4 today.
?Syncope prior to admission (no head injury), possibly due to orthostasis or vasovagal--EKG on admission normal sinus rhythm--Orthostatic vital signs on admission showed SBP 126, 103, 111 (supine, sitting, standing)--No further syncopal episodes, no
focal neurologic deficits-PT/OT rec home health
Essential Hypertension--Continue lisinopril and metoprolol with hold parameters
Abnormal UA�was suspicious for UTI, urine culture pending. Asymptomatic�will defer antibiotics at this time.
Hyperlipidemia-Continue home statin
Anxiety/Depression-Continue home alprazolam and escitalopram. Will reevaluate for discontinuation of escitalopram if highly suspicious of SIADH causing her hyponatremia.
Irritable Bowel Syndrome--Continue home Linzess
Spinal Stenosis/Osteoarthritis--hold home Celebrex given above. Not complaining of any pain at this time. Reevaluate as needed.
Code Status--Full Code
DVT proph--Lovenox
spoke with pt DaughterMichell: given pt shuffling gait, flat affect, flat facies, some forgetfulness wonder if early Parkinson's might be the unifying diagnosis here?--encouraged daughter to mention to PCP
Original Note:
Today's Communication/Plan
-
Nephrology consulted. Anticipate discharge home with home health. Appreciate CM.
Assessment / Plan
Assessment / Plan
78-year-old female with past medical history of chronic hyponatremia, gallstone pancreatitis, IBS who presents to ED for nausea, anorexia, mild epigastric pain for 10 days. On day of admission, she had a syncopal episode while sitting at the
kitchen table. Labs on admission were notable for leukocytosis WBC 20.7, hyponatremia NA 120, lipase of 583.
Acute on Chronic Hyponatremia (Baseline sodium ~134)
-NA 120 and symptomatic on admission��has been improving and asymptomatic, 132 today
-Urine OSM and NA low, consistent with SIADH. Less likely excess free water intake as patient reports adherence to fluid restriction, as well as poor oral intake prior to admission.
-TSH slightly low 0.33, free T4 within normal limits 1.69. Recommend repeating as outpatient with primary care.
� Given that she is asymptomatic and at baseline, stable for discharge today after nephrology evaluation if they agree. Although the acute hyponatremia seems to be resolved, will proceed with nephrology consultation given chronicity of problem.
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
Metabolic Acidosis, normal anion gap 15 on admission�resolved
�s/p bicarb in ED and fluid recuscitation with 2L followed by IV NS maintenance fluids
�Unclear etiology. Possibly due to recent episode of diarrhea (resolved prior to admission)
-Lactate minimally elevated on admission 2.1 --> normalized when repeated overnight
Nausea/epigastric pain�resolved
-Lipase MILDLY elevated on admission and CT not consistent with pancreatitis
-Abdominal ultrasound showed moderate diffuse liver disease, no evidence of cholelithiasis or biliary obstruction
-Continue Protonix and symptomatic treatment.
-Hold home Celebrex given potential gastritis.
Leukocytosis 20.7 on admission�afebrile, no signs of infection. Resolved, wnl x2.
?Syncope prior to admission (no head injury), possibly due to orthostasis or vasovagal or autonomic dysfunction
-EKG on admission normal sinus rhythm
-Orthostatic vital signs on admission showed SBP 126, 103, 111 (supine, sitting, standing). Most recent orthostatic vital signs negative.
-No further syncopal episodes, no focal neurologic deficits.
Essential Hypertension-Continue home lisinopril and metoprolol. BPs persistently mildly hypertensive. Given concern for possible orthostasis at home will defer medication changes to PCP in outpatient setting. Will reassess adjusting
antihypertensives as needed.
Abnormal UA�was suspicious for UTI. Urine culture likely contaminated. Asymptomatic�will defer antibiotics at this time.
Hyperlipidemia-Continue home statin
Anxiety / Depression-Continue home alprazolam and escitalopram. Will reevaluate for discontinuation of escitalopram if highly suspicious of SIADH causing her hyponatremia.
Irritable Bowel Syndrome-Continue home Linzess
Spinal Stenosis
Osteoarthritis-hold home Celebrex given above. Not complaining of any pain at this time. Reevaluate as needed.
Shuffling gait noted on PT evaluation�could consider evaluation for Parkinson's disease��may also explain a syncopal episode possibly attributed to autonomic dysfunction associated with Parkinson's
Discussed plan regarding hyponatremia and shuffling gait with daughter on phone later in day today. Discussed discharge today.
Code Status: Full Code
Diet: Low residue
DVT prophylaxis Lovenox
Dispo planning: Anticipate discharge home with home health today pending nephrology evaluation
Anticipated Discharge: Today
Subjective/Interval History
-
Date of Service: May 05, 2024
No acute events overnight. She reports feeling slightly better today. Offers no complaints; endorses constipation, last BM was which she attributes to poor oral intake. Otherwise review of systems negative-- denies dizziness, chest pain,
shortness of breath, abdominal pain, nausea, vomiting, diarrhea. She has been tolerating oral hydration and solid foods, ambulating halls.
Objective Data
-
Labs:
Laboratory Results
05/05/24
06:14
WBC 9.1
Hgb 11.3 L
Hct 33.1 L
Plt Count 184
Sodium 132 L
Potassium 4.3
Chloride 100
Carbon Dioxide 22
BUN 14
Creatinine 0.8
Glucose 102 H
Calcium 8.8
Vital Signs:
Vital Signs
Temp Pulse Resp BP Pulse Ox
98.5 F 70 18 168/78 98
05/05/24 07:50 05/05/24 09:14 05/05/24 07:50 05/05/24 09:14 05/05/24 07:50
I&O
05/04/24 05/05/24 05/06/24
06:59 06:59 06:59
Intake Total 999
Balance 999 / 999
Review of Systems
-
History Source: Patient
All other systems: Reviewed and negative
Physical Exam
-
General: No Apparent Distress and Comfortable; Negative Pain, Fever, Chills or Sweats
HEENT: Normocephalic, Atraumatic and Moist Mucous Membranes
Respiratory: Clear to Auscultation and Non Labored Respirations; Negative Wheezes, Rales, Rhonchi or Crackles
Cardiac: Regular Rhythm and S1/S2; Negative Murmur
GI: Soft, Nontender, Nondistended and Normal Bowel Sounds
Musculoskeletal: No Clubbing, No Cyanosis and No Edema
Skin: Warm and Dry
Neuro: Awake, Alert and Nonfocal/Grossly Intact
Psych: Calm and Other (Flat affect)
Data Reviewed
-
Diagnostic Radiology: Image personally visualized and interpreted and Report Reviewed by me
CT Scan: Image personally visualized and interpreted and Report Reviewed by me
Ultrasound: Report Reviewed by me
Labs: Labs Reviewed by me, Discussed with Physician and Discussed with Patient
Old Records: Reviewed
--- NOTE | 2024-05-05 14:03 | CM ---
Addendum entered by Michelle Grimm 05/05/24 15:55:
Per [facility] patient Eliquis will be 50$ per 30 days. CM updated patient and she agreed that the cost was acceptable. CM will provide coupon for 30days free. CM will continue to follow for discharge planning needs.
Original Note:
Patient seen at bedside with physicians. Patient is for discharge home today. CM provided IMM and CM/physician will call to patient daughter to review discharge planning needs. Patient family to transport. CM will continue to follow for discharge
planning needs.
Plan; home with no needs.
--- NOTE | 2024-05-05 14:09 | W.CON.NEPH ---
Consultation
-
Date/Time Consultation Requested: May 04, 2024 at 6 PM
Date/Time Consultation Performed: May 05, 2024 at 12 PM
Requesting Provider: Dr. Schaffer
Performing Provider: Dr. Maldonado
Reason for Consultation: Hyponatremia
Medical History
-
Chief Complaint: Hyponatremia
History of Present Illness:
78 y/o female past medical history of hypertension, hyperlipidemia, anxiety/depression, irritable bowel syndrome and chronic hyponatremia who presents with persistent nausea and a syncopal 2 days ago with a serum sodium of 120. Patient reports
about 10 days ago she started feeling unwell with nausea, anorexia and abdominal discomfort. Patient states has been on a fluid restriction for some time of 40 ounces for chronic hyponatremia.
She has had no new medications recently she is on SSRI.
Sodium is improved to 131 with IV fluids
Urine sodium low at 12 with a urine osmolality of 107.
Past Medical History
Essential Hypertension
Hyperlipidemia
Anxiety / Depression
Chronic Hyponatremia
Irritable Bowel Syndrome
GERD
Spinal Stenosis
Social History
Tobacco: Non-Smoker
Alcohol: None
Allergies / Home Medications
Allergy/AdvReac Type Severity Reaction Status Date / Time
No Known Allergies Allergy Verified 11/26/23 13:44
�Medication �Instructions �Recorded �Confirmed �Type
Prevagen 1 cap PO DAILY Supplement 05/25/20 05/03/24 History
linaclotide 145 mcg capsule 145 mcg PO DAILY Constipation 05/25/20 05/03/24 History
(Linzess)
metoprolol succinate 25 mg 25 mg PO DAILY Blood Pressure 05/25/20 05/03/24 History
tablet,extended release 24 hr
cyanocobalamin (vitamin B-12) 1,000 mcg PO DAILY Supplement ##0 04/22/23 05/03/24 History
1,000 mcg tablet
escitalopram oxalate 20 mg tablet 20 mg PO DAILY depression 04/22/23 05/03/24 History
(Lexapro)
rosuvastatin 10 mg tablet (Crestor) 10 mg PO DAILY High Cholesterol 04/22/23 05/03/24 History
vitamins A,C,N-hrvc-rxpsmb 2,148 1 tab PO DAILY Supplement 04/22/23 05/03/24 History
mcg-113 mg-45 mg-17.4 mg tablet
(PreserVision AREDS)
celecoxib 200 mg capsule (Celebrex) 200 mg PO DAILY #0 caps 05/14/23 05/03/24 Rx
lisinopril 20 mg tablet 20 mg PO DAILY Blood Pressure #0 05/14/23 05/03/24 Rx
tabs
alprazolam 0.25 mg tablet 0.25 mg PO BID anxiety 11/26/23 05/03/24 History
tramadol 50 mg tablet 50 mg PO TID pain 11/26/23 05/03/24 History
docusate sodium 100 mg capsule 100 mg PO DAILYPRN PRN constipation 05/03/24 05/03/24 History
(Colace)
esomeprazole magnesium 40 mg 40 mg PO DAILY GERD 05/03/24 05/03/24 History
capsule,delayed release
ondansetron HCl 4 mg tablet 4 mg PO Q8HPRN PRN nausea 05/03/24 05/03/24 History
therapeutic multivitamin 1 tab PO DAILY Supplement 05/03/24 05/03/24 History
Review of Systems
-
No chest pain or shortness of breath
All other systems: Negative unless noted
Physical Exam
Vital Signs
Vital Signs
Temp Pulse Resp BP Pulse Ox
98.2 F 74 16 161/93 98
05/05/24 11:54 05/05/24 11:54 05/05/24 11:54 05/05/24 11:54 05/05/24 11:55
Lab Results
WBC 9.1 10^3/uL (4.8-10.8) 05/05/24 06:14
RBC 4.12 10^6/uL (4.20-5.40) L 05/05/24 06:14
Hgb 11.3 g/dL (12.0-16.0) L 05/05/24 06:14
Hct 33.1 % (37.0-47.0) L 05/05/24 06:14
Plt Count 184 10^3/uL (130-400) 05/05/24 06:14
Sodium 132 mmol/L (135-145) L 05/05/24 06:14
Potassium 4.3 mmol/L (3.5-5.1) 05/05/24 06:14
Chloride 100 mmol/L (98-107) 05/05/24 06:14
Carbon Dioxide 22 mmol/L (22-30) 05/05/24 06:14
BUN 14 mg/dl (7-17) 05/05/24 06:14
Creatinine 0.8 mg/dL (0.6-1.0) 05/05/24 06:14
eGFR > 60.00 05/05/24 06:14
Glucose 102 mg/dl (70-99) H 05/05/24 06:14
Calcium 8.8 mg/dl (8.4-10.2) 05/05/24 06:14
Albumin 4.6 g/dl (3.5-5.0) 05/03/24 12:32
Physical Exam
General no acute distress
HEENT no cephalic atraumatic extraocular muscle intact no scleral icterus no JVD neck supple
lungs clear to auscultation bilateral
heart regular S1-S2 positive
abdomen soft nontender positive bowel sounds
extremities no edema pulses present bilateral
Neurologically nonfocal alert and oriented x 3
Skin no lesions no abrasions no petechiae
Psych flat affect
Data Reviewed
-
Radiology: Image Personally Visualized and interpreted (No acute disease)
Labs: Labs Reviewed by me, Discussed with Physician and Discussed with Patient
Assessment/Plan
-
78 y/o female past medical history of hypertension, hyperlipidemia, anxiety/depression, irritable bowel syndrome and chronic hyponatremia who presents with persistent nausea and a syncopal 2 days ago with a serum sodium of 120. Patient reports
about 10 days ago she started feeling unwell with nausea, anorexia and abdominal discomfort. Patient states has been on a fluid restriction for some time of 40 ounces for chronic hyponatremia.
She has had no new medications recently she is on SSRI.
Sodium is improved to 131 with IV fluids
Urine sodium low at 12 with a urine osmolality of 107.
Impression.
Acute on chronic hyponatremia likely from decreased p.o. intake with a low urine sodium. Urine studies not consistent with SIADH. Certainly could have chronic SIADH but that will be need to be worked up as an outpatient.
Status post syncope. Anxiety depression.
Hypertension.
Plan.
As discussed with the primary team okay with discharge from renal standpoint as her sodium is 131.
No need to discontinue SSRI I would continue with the fluid restriction of 48 ounces or less.
No indication for salt tabs I did ask the patient to increase her protein in her diet.
Can follow-up as an outpatient
--- NOTE | 2024-05-05 16:21 | CM ---
Patient seen at bedside with physicians. Patient is for discharge home today. CM provided IMM and CM/physician will called to patient daughter to review discharge planning needs, VM left. Patient family to transport. CM will continue to follow for
discharge planning needs.
Plan; home with no needs.
[2024-05-05] MEDS: LOVENOX 40 MG SC (17:23)
[2024-05-06 03:53] VITALS: BP 140/101
[2024-05-06 04:31] VITALS: BP 157/98
[2024-05-06 07:17] LABS: Hematocrit 34.3 % (37.0-47.0); Hemoglobin 11.6 g/dL (12.0-16.0); Mean Corp Hgb Conc. 33.8 g/dL (33.0-37.0); Mean Corpuscular Hgb 27.3 pg (27.0-31.0); Mean Corpuscular Volume 80.7 fL (81.0-99.0); Platelet Count 205 10^3/uL (130-400); Red Blood Cell Count 4.25 10^6/uL (4.20-5.40); Red Cell Dist. Width 15.2 % (11.5-14.5); White Blood Cell Count 8.5 10^3/uL (4.8-10.8)
[2024-05-06 07:25] VITALS: BP 166/96
[2024-05-06 07:35] VITALS: BP 153/91
[2024-05-06 07:41] LABS: Blood Urea Nitrogen 12 mg/dl (7-17); Calcium 9.2 mg/dl (8.4-10.2); Carbon Dioxide 28 mmol/L (22-30); Chloride 96 mmol/L (98-107); Estimated Creatinine Clearance 48 ml/min; Glucose 118 mg/dl (70-99); Magnesium 1.9 mg/dl (1.6-2.3); Sodium 131 mmol/L (135-145); eGFR > 60.00
[2024-05-06] MEDS: XANAX 0.25 MG PO (07:48)
[2024-05-06] MEDS: CRESTOR 10 MG PO (07:52)
[2024-05-06] MEDS: PROTONIX 40 MG PO (07:52)
[2024-05-06] MEDS: LINZESS 145 MCG PO (07:52)
[2024-05-06] MEDS: LEXAPRO 20 MG PO (07:52)
[2024-05-06] MEDS: TOPROL XL 25 MG PO (07:52)
[2024-05-06] MEDS: ZESTRIL 20 MG PO (07:52)
[2024-05-06] MEDS: MIRALAX 17 GRAMS PO (07:53)
--- NOTE | 2024-05-06 08:21 | W.PN.HOSP.TC ---
Addendum entered and electronically signed by Najma Alvares MD 05/06/24 13:21:
I saw and evaluated the patient independently. I reviewed the resident�s note and agree with findings and plan as documented by Dr. Schaffer.
GENERAL: well developed, well nourished, female in no apparent distress
HEENT: NC/AT--no O2 requirements
HEART: regular rate and rhythm, +S1, +S2, 2/6 LONG
LUNGS : clear to auscultation bilaterally
ABDOM: soft, nontender, nondistended, + bowel sounds
EXT: no cyanosis, clubbing, or edema
NEUROLOGIC: dementia vs depression vs Parkinson's?
ok for d/c
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
renal--TSH, cortisol both WNL--also needs to eat more protein
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
Metabolic Acidosis, normal anion gap on admission�s/p bicarb in ED and fluid resuscitation with 2L followed by IV NS maintenance fluids�Unclear etiology. Possibly due to recent episode of diarrhea (resolved prior to admission)-Lactate minimally
elevated on admission 2.1 --> normalized when repeated overnight
Nausea/epigastric pain�resolved--Lipase MILDLY elevated on admission and CT not consistent with pancreatitis--Abdominal ultrasound showed moderate diffuse liver disease, no evidence of cholelithiasis or biliary obstruction--Continue Protonix and
symptomatic treatment--Hold home Celebrex given potential gastritis.
Leukocytosis 20.7 on admission�afebrile, no signs of infection. Resolved, 10.4 today.
?Syncope prior to admission (no head injury), possibly due to orthostasis or vasovagal--EKG on admission normal sinus rhythm--Orthostatic vital signs on admission showed SBP 126, 103, 111 (supine, sitting, standing)--No further syncopal episodes, no
focal neurologic deficits-PT/OT rec home health
Essential Hypertension--Continue lisinopril and metoprolol with hold parameters
Abnormal UA�was suspicious for UTI, urine culture pending. Asymptomatic�will defer antibiotics at this time.
Hyperlipidemia-Continue home statin
Anxiety/Depression-Continue home alprazolam and escitalopram. Will reevaluate for discontinuation of escitalopram if highly suspicious of SIADH causing her hyponatremia.
Irritable Bowel Syndrome--Continue home Linzess
Spinal Stenosis/Osteoarthritis--hold home Celebrex given above. Not complaining of any pain at this time. Reevaluate as needed.
Code Status--Full Code
DVT proph--Lovenox
spoke with pt DaughterMichell: given pt shuffling gait, flat affect, flat facies, some forgetfulness wonder if early Parkinson's might be the unifying diagnosis here?--encouraged daughter to mention to PCP
Original Note:
Today's Communication/Plan
-
Discharge home today
Assessment / Plan
Assessment / Plan
78-year-old female with past medical history of chronic hyponatremia, gallstone pancreatitis, IBS who presents to ED for nausea, anorexia, mild epigastric pain for 10 days. On day of admission, she reportedly had a syncopal episode while sitting at
the kitchen table. Labs on admission were notable for leukocytosis WBC 20.7, hyponatremia NA 120, lipase of 583.
Acute on Chronic Hyponatremia (Baseline sodium ~134)-- improved, at baseline
-NA 120 and symptomatic on admission. Less likely excess free water intake as patient reports adherence to fluid restriction, as well as poor oral intake prior to admission.�-- NA 131 today
-Urine OSM and NA low-- possibly poor oral intake/hypovolemia prior to admission.
-AM cortisol wnl. TSH slightly low 0.33, free T4 within normal limits 1.69. Recommend repeating as outpatient with primary care.
� Nephrology consulted, appreciate eval and recs. Given that she is asymptomatic and at baseline, stable for discharge today. Continue fluid restriction at home, follow up with nephrology and PCP outpatient. Discussed plan with patient-- she is
understanding and agreeable. Daughter updated by phone yesterday.
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
Metabolic Acidosis, normal anion gap 15 on admission�resolved
�s/p bicarb in ED and fluid resuscitation with 2L followed by IV NS maintenance fluids
�Unclear etiology. Possibly due to recent episode of diarrhea (resolved prior to admission)
-Lactate minimally elevated on admission 2.1 --> normalized when repeated overnight
Nausea/epigastric pain�resolved
-Lipase MILDLY elevated on admission and CT not consistent with pancreatitis
-Abdominal ultrasound showed moderate diffuse liver disease, no evidence of cholelithiasis or biliary obstruction
-Continue Protonix and symptomatic treatment.
-Hold home Celebrex given potential gastritis.
Leukocytosis 20.7 on admission�afebrile, no signs of infection. Resolved, wnl x3
?Syncope prior to admission (no head injury), possibly due to orthostasis or vasovagal or autonomic dysfunction
-EKG on admission normal sinus rhythm-- Orthostatic vital signs on admission showed SBP 126, 103, 111 (supine, sitting, standing). Most recent orthostatic vital signs negative.
-No further syncopal episodes, no focal neurologic deficits.-- PT/OT rec home PT vs no needs
Essential Hypertension-Continue home lisinopril and metoprolol. BPs persistently mildly hypertensive, but reasonable based on patient's reported baseline at home. Given concern for possible orthostasis at home will defer medication changes to PCP
in outpatient setting.
Abnormal UA�was suspicious for UTI. Urine culture likely contaminated. Asymptomatic�will defer antibiotics at this time.
Insignificant abnormal lab value
Hyperlipidemia-Continue home statin
Anxiety / Depression-Continue home alprazolam and escitalopram. Nephrology in agreement.
Irritable Bowel Syndrome-Continue home Linzess
Spinal Stenosis
Osteoarthritis-hold home Celebrex given above. Not complaining of any pain at this time. Reevaluate as needed.
Shuffling gait noted on PT evaluation�could consider evaluation for Parkinson's disease��may also explain a syncopal episode possibly attributed to autonomic dysfunction associated with Parkinson's
Discussed plan regarding hyponatremia and shuffling gait with daughter on phone yesterday. Discussed discharge plan.
Code Status: Full Code
Diet: Low residue
DVT prophylaxis Lovenox
Dispo planning: home health, discharge today
Anticipated Discharge: Today
Subjective/Interval History
-
Date of Service: May 06, 2024
No acute events overnight. Feels well and desires discharge home. She has no complaints this morning, but does report constipation. Her last 'real' BM was 1 week ago, she did pass one small, hard stool this morning. No black or bloody stool.
Otherwise review of systems negative-- denies dizziness, chest pain, shortness of breath, abdominal pain, nausea, vomiting, diarrhea. Tolerating oral diet, understanding of fluid restriction. Ambulating halls.
Objective Data
-
Labs:
Laboratory Results
05/06/24
06:22
WBC 8.5
Hgb 11.6 L
Hct 34.3 L
Plt Count 205
Sodium 131 L
Potassium 4.0
Chloride 96 L
Carbon Dioxide 28
BUN 12
Creatinine 0.8
Glucose 118 H
Calcium 9.2
Vital Signs:
Vital Signs
Temp Pulse Resp BP Pulse Ox
98.7 F 80 18 153/91 97
05/06/24 07:35 05/06/24 07:52 05/06/24 07:35 05/06/24 07:52 05/06/24 07:35
I&O
05/05/24 05/06/24 05/07/24
06:59 06:59 06:59
Intake Total 1979 2540 / 2540
Balance 1979 2540 / 2540
Review of Systems
-
History Source: Patient
All other systems: Reviewed and negative
Physical Exam
-
General: No Apparent Distress and Comfortable; Negative Pain, Fever, Chills or Sweats
HEENT: Normocephalic, Atraumatic and Moist Mucous Membranes
Respiratory: Clear to Auscultation and Non Labored Respirations; Negative Wheezes, Rales, Rhonchi or Crackles
Cardiac: Regular Rhythm and S1/S2; Negative Murmur
GI: Soft, Nontender, Nondistended and Normal Bowel Sounds
Musculoskeletal: No Clubbing, No Cyanosis and No Edema
Skin: Warm and Dry
Neuro: Awake, Alert and Nonfocal/Grossly Intact
Psych: Calm and Other (Flat affect)
Data Reviewed
-
Diagnostic Radiology: Image personally visualized and interpreted and Report Reviewed by me
CT Scan: Image personally visualized and interpreted and Report Reviewed by me
Ultrasound: Report Reviewed by me
Labs: Labs Reviewed by me, Discussed with Physician and Discussed with Patient
Old Records: Reviewed
--- NOTE | 2024-05-06 09:35 | VNURNOTE ---
Home health liaison met with patient to discuss [facility] services, visit scheduling/frequency, homebound status and pet policy. Patient agreeable to [facility] services and understands home visits will be 1-2 times a week to assess and teach medical
management. Patient aware a visiting nurse will contact her for start of care within 1-2 days after discharge from . [facility] Referral completed in care port
--- NOTE | 2024-05-06 11:15 | CM ---
Patient seen bedside.
IMM reviewed, patient did not wish to sign. Copy left in room.
Patient stated she is for d/c today.
Family will transport.
Plan: home with [facility] once medically stable.
[2024-05-06 11:17] VITALS: BP 115/93; BP 129/85; BP 139/95; PULSE 76; PULSE 87; PULSE 92
[2024-05-06] MEDS: DULCOLAX 10 MG RECTAL (11:32)
--- NOTE | 2024-05-06 14:11 | W.PN.NEPH.PH ---
Today's Communication / Plan
-
bmp 1 week
Assessment/Plan
-
78 y/o female past medical history of hypertension, hyperlipidemia, anxiety/depression, irritable bowel syndrome and chronic hyponatremia who presents with persistent nausea and a syncopal 2 days ago with a serum sodium of 120. Patient reports
about 10 days ago she started feeling unwell with nausea, anorexia and abdominal discomfort. Patient states has been on a fluid restriction for some time of 40 ounces for chronic hyponatremia.
She has had no new medications recently she is on SSRI.
Sodium is improved to 131 with IV fluids
Urine sodium low at 12 with a urine osmolality of 107.
Impression.
Acute on chronic hyponatremia likely from decreased p.o. intake with a low urine sodium. Urine studies not consistent with SIADH. Certainly could have chronic SIADH but that will be need to be worked up as an outpatient.
Status post syncope. Anxiety depression.
Hypertension.
Plan.
As discussed with the primary team okay with discharge from renal standpoint as her sodium is 131.
No need to discontinue SSRI I would continue with the fluid restriction of 48 ounces or less.
No indication for salt tabs I did ask the patient to increase her protein in her diet.
Can follow-up as an outpatient
-
-
Date of Service: May 06, 2024
CC / HPI / ROS
-
no cp or sob
no overnight events
Labs
-
Labs:
WBC 8.5 10^3/uL (4.8-10.8) 05/06/24 06:22
RBC 4.25 10^6/uL (4.20-5.40) 05/06/24 06:22
Hgb 11.6 g/dL (12.0-16.0) L 05/06/24 06:22
Hct 34.3 % (37.0-47.0) L 05/06/24 06:22
Plt Count 205 10^3/uL (130-400) 05/06/24 06:22
Sodium 131 mmol/L (135-145) L 05/06/24 06:22
Potassium 4.0 mmol/L (3.5-5.1) 05/06/24 06:22
Chloride 96 mmol/L (98-107) L 05/06/24 06:22
Carbon Dioxide 28 mmol/L (22-30) 05/06/24 06:22
BUN 12 mg/dl (7-17) 05/06/24 06:22
Creatinine 0.8 mg/dL (0.6-1.0) 05/06/24 06:22
eGFR > 60.00 05/06/24 06:22
Glucose 118 mg/dl (70-99) H 05/06/24 06:22
Calcium 9.2 mg/dl (8.4-10.2) 05/06/24 06:22
Albumin 4.6 g/dl (3.5-5.0) 05/03/24 12:32
Physical Exam
-
Vital Signs:
Vital Signs
Temp Pulse Resp BP Pulse Ox
98.3 F 76 18 115/93 95
05/06/24 11:17 05/06/24 11:17 05/06/24 11:17 05/06/24 11:17 05/06/24 11:17
Respiratory:: Bilateral: CTA
Lung Excursion:: Normal
Abdomen:: Soft
Bowel Sounds:: Normal
Extremity Edema:: None: Bilateral:
[2024-05-06 14:15] VITALS: BP 152/87
--- NOTE | 2024-05-06 18:22 | W.DCSUMMARY ---
Addendum entered and electronically signed by Najma Alvares MD 05/07/24 07:12:
Read, reviewed, and agree. See same day progress note for additional details. Time spent coordinating care, DC planning, review of DC plan of care with resident, transition of care, review of records in EMR, med rec, consults, notes, d/w
consultants, nursing, family, and CM = 35 minutes
Patient was seen in consultation by nephrology. Chronic SIADH, as mentioned below, was thought to be the driving force with acute hypovolemia due to poor oral intake as mentioned below. Patient does take Lexapro on a daily basis and that was
continued at discharge. Nephrology did not feel the need to stop or reduce the dose at this time. In addition, it was recommended that the patient increase her protein intake and have fluid restriction as noted below.
It was noted that the patient had a very flat affect, shuffling gait, slow gait, swings with the blood pressure and the diagnosis of early Parkinson's was raised with her daughter. Of course, this could all be depression which needs better
treatment but it is still recommended that the patient follow-up with her primary care physician as well as possible neurology evaluation.
Original Note:
Discharge Summary
Discharge Data
Date of Admission: 05/03/24
Date of Discharge: 05/06/24
-
Pending Results: No
Hospital Course
Discharging Physician : Dr. Schaffer/Dr. Alvares
Disposition : Home with PT
Primary care physician : Kajal Malik; Hugh Helms
Principal Discharge diagnosis :
Acute on chronic hyponatremia
Metabolic acidosis with normal anion gap
Leukocytosis
Possible syncopal episode prior to admission
Chronic Discharge diagnosis :
Essential hypertension
Hyperlipidemia
Anxiety/Depression
Irritable bowel syndrome
Spinal stenosis/Osteoarthritis
Hospital Course : Presented to Emergency Room for 10 days of nausea/epigastric pain and poor oral intake. She also reported a possible syncopal episode while sitting at the kitchen table at home on the day of admission. Labs on admission were
notable for Na 120. Nephrology was consulted. Her chronic hyponatremia was thought to be due to syndrome of inappropriate antidiuretic hormone secretion, and stable/asymptomatic at baseline. Her hyponatremia was likely acutely worsened by
hypovolemia from poor oral intake. After initial fluid resuscitation, her Na returned to her baseline and subsequently remained stable. She tolerated oral diet with improvement of appetite, and daily fluid restriction was continued. Her leukocytosis
and metabolic acidosis present on admission resolved. She had no episodes of syncope here, no focal neurologic deficits, and orthostatic vital signs were negative (after IV fluids). Suspect orthostasis or vagal response. Physical therapy notice
shuffling gate, and patient and her daughter were instructed to follow up with Primary Care for further evaluation or monitoring. Her other chronic conditions remained stable. On day of discharge, she was stable. She was discharged home with PT.
Will follow up with PCP and nephrology outpatient.
Important imaging findings :
Abdomen ultrasound 05/03/24
IMPRESSION:
1. Moderate diffuse liver disease.
2. No sonographic evidence for cholelithiasis or biliary obstruction.
3. Moderate chronic asymmetric left renal disease.
4. Duplicated right renal collecting system.
Abdomen/pelvis CT 05/03/24
IMPRESSION:
No findings to confirm focal pancreatic/peripancreatic inflammatory changes.
Small hiatal hernia.
Incidental duplication of the right renal collecting system.
Chest xray 05/03/24
IMPRESSION:
1. Mildly decreased bilateral lung volumes.
2. Severe tortuosity of the descending thoracic aorta.
3. Severe multilevel discogenic degenerative disease in the thoracic and lumbar spine.
Discharge Plan
-
Patient Disposition: Home with Home Care
Discharge Diagnosis/Procedures: Acute on chronic hyponatremia
Metabolic acidosis, normal anion gap on admission
Nonspecific nausea/epigastric pain
Leukocytosis
Possible syncopal episode prior to admission
Moderate chronic asymmetric left renal disease seen on imaging (incidental finding)
Duplicated right renal collecting system (incidental finding)
Essential hypertension
Hyperlipidemia
Anxiety/depression
Irritable bowel syndrome
Spinal stenosis/osteoarthritis
Condition: Good
Diet: As tolerated, Low Residue, Restrict fluids to 48 oz and Other diet
Additional Diets: Nephrology recommended you increase the protein in your diet. Continue fluid restriction.
Activity: As tolerated
Driving Restrictions: Not until seen by your Dr
Bathing Restrictions: OK to Shower
Blood Work: Repeat BMP in 1 week with Primary Care or [employer] Specialist (kidney doctor). Ask your Primary Care about repeating thyroid test (TSH).
Other Services: PT and OT
Instructions: Syncope (Fainting) (DC), Preventing falls in adults, Syndrome of inappropriate antidiuretic hormone secretion (SIADH), BLOOD PRESSURE
Referrals:
Kajal Malik CRNP [Family Provider] - in less than 1 week (Call your Primary Care Provider to schedule follow up appointment within 1 week of hospitalization. You should repeat blood work, check blood pressure, and talk about evaluating for
neurologic condition like Parkinsons Disease.)
Estrada Maldonado, [Active] - in one to two weeks (Call the Nephrology office (kidney doctor) to schedule an appointment in 1 to 2 weeks.)
Additional Discharge Medication Instructions: Ask your doctor before you restart daily Celebrex or tramadol.
If you have questions or need medication refills, contact your primary care or the prescribing provider.
Prescriptions:
Continued
metoprolol succinate 25 MG tablet extended release 24 hr
25 mg PO DAILY
Linzess 145 MCG capsule
145 mcg PO DAILY
Prevagen capsule
1 cap PO DAILY
cyanocobalamin (vitamin B-12) 1,000 mcg Tablet
1,000 mcg PO DAILY Qty: 0
escitalopram oxalate [Lexapro] 20 mg Tablet
20 mg PO DAILY
PreserVision AREDS 2,148 mcg-113 mg-45 mg-17.4mg Tablet
1 tab PO DAILY
rosuvastatin [Crestor] 10 mg Tablet
10 mg PO DAILY
lisinopril 20 MG tablet
20 mg PO DAILY Qty: 0 0RF
alprazolam 0.25 mg tablet
0.25 mg PO BID
ondansetron HCl 4 mg Tablet
4 mg PO Q8HPRN PRN (Reason: nausea)
therapeutic multivitamin Tablet
1 tab PO DAILY
esomeprazole magnesium 40 mg Capsule,Delayed Release(Dr/Ec)
40 mg PO DAILY
docusate sodium [Colace] 100 mg Capsule
100 mg PO DAILYPRN PRN (Reason: constipation)
Held
celecoxib [Celebrex] 200 mg Capsule
200 mg PO DAILY Qty: 0 0RF
Hold Instructions: Talk to your doctor before restarting this medication
tramadol 50 mg Tablet
50 mg PO TID
Hold Instructions: Talk to your doctor before restarting this medication
Discharge Orders:
Discharge Patient (As Directed); Ordered 05/06/24
Ordered By: Pushpa Schaffer
Discharge Date and Time
Discharge Date/Time: 05/06/24 15:36
Print Language: FAROESE
== END 2024-05-06 15:36 | disposition home health service (06) | DRG 644 ==
LOC: 4 EAST ACU 17:28
PROVIDERS: Emergency Medicine; Nurse Practitioner Family; Physician Assistant Medical; Student in an Organized Health Care Education/Training Program; ADMITTING PHYSICIAN Hospitalist; ATTENDING PHYSICIAN Internal Medicine; EMERGENCY PHYSICIAN Emergency Medicine; FAMILY PHYSICIAN Nurse Practitioner Primary Care; OTHER PHYSICIAN Internal Medicine Nephrology
DX: E22.2 Syndrome of inappropriate secretion of antidiuretic hormone (principal); E87.20 Acidosis, unspecified; D72.829 Elevated white blood cell count, unspecified; I10 Essential (primary) hypertension; E78.00 Pure hypercholesterolemia, unspecified; F41.9 Anxiety disorder, unspecified; F32.A Depression, unspecified; K58.8 Other irritable bowel syndrome; M48.00 Spinal stenosis, site unspecified; M19.90 Unspecified osteoarthritis, unspecified site; E86.1 Hypovolemia; G20.A1 Parkinson's disease without dyskinesia, without mention of fluctuations; F03.90 Unspecified dementia, unspecified severity, without behavioral disturbance, psychotic disturbance, mood disturbance, and anxiety; Q63.8 Other specified congenital malformations of kidney; K76.9 Liver disease, unspecified; K21.9 Gastro-esophageal reflux disease without esophagitis; Z96.611 Presence of right artificial shoulder joint; Z96.651 Presence of right artificial knee joint; Z90.710 Acquired absence of both cervix and uterus; Z79.899 Other long term (current) drug therapy; Z79.1 Long term (current) use of non-steroidal anti-inflammatories (NSAID); K44.9 Diaphragmatic hernia without obstruction or gangrene
CPT/HCPCS: 71046; 74177; 76700; 80048; 80053; 81003; 81015; 82533; 83605; 83690; 83735; 83935; 84295; 84300; 84439; 84443; 84478; 84484; 85025; 85027; 87086; 93005; 96361; 96374; 97161; 99291; Q9967

== ENCOUNTER 2024-06-25 13:40 | Emergency (ER) | payer MEDICARE, OTHER, SELFPAY ==
[2024-06-25 13:40] VITALS: BMI 27.0
[2024-06-25 13:43] VITALS: BP 147/102
[2024-06-25 14:12] LABS: % Basophils 0.5 % (0-2); % Immature Granulocytes 0.5 % (0-0.5); % Monocytes 10.1 % (1.7-9.3); % Neutrophils 71.9 % (42.2-75.2); Absolute Basophils 0.1 10^3/uL (0-0.2); Absolute Eosinophils 0.1 10^3/uL (0-0.7); Absolute Immature Granulocytes 0.1 10^3/uL (0-0.05); Absolute Lymphocytes 1.6 10^3/uL (1.2-3.4); Absolute Neutrophils 7.1 10^3/uL (1.4-6.5); Hematocrit 36.4 % (37.0-47.0); Hemoglobin 12.3 g/dL (12.0-16.0); Mean Corp Hgb Conc. 33.8 g/dL (33.0-37.0); Mean Corpuscular Hgb 27.8 pg (27.0-31.0); Mean Corpuscular Volume 82.2 fL (81.0-99.0); Mean Platelet Volume 8.9 fL (7.4-10.4); Nucleated Red Blood Cells % 0 %; Platelet Count 334 10^3/uL (130-400); Red Blood Cell Count 4.43 10^6/uL (4.20-5.40); Red Cell Dist. Width 17.4 % (11.5-14.5); White Blood Cell Count 9.8 10^3/uL (4.8-10.8)
[2024-06-25 14:32] LABS: ALT (SGPT) 83 U/L (0-35); AST (SGOT) 57 U/L (14-36); Albumin 4.6 g/dl (3.5-5.0); Alkaline Phosphatase 119 U/L (38-126); Blood Urea Nitrogen 15 mg/dl (7-17); Calcium 9.4 mg/dl (8.4-10.2); Carbon Dioxide 24 mmol/L (22-30); Chloride 99 mmol/L (98-107); Glucose 118 mg/dl (70-99); Lipase 250 U/L (23-300); Potassium 4.2 mmol/L (3.5-5.1); Sodium 130 mmol/L (135-145); Total Bilirubin 0.5 mg/dl (0.2-1.3); Total Protein 7.5 g/dl (6.3-8.2); eGFR > 60.00
[2024-06-25 14:38] LABS: Troponin I < 0.012 ng/ml
[2024-06-25 15:54] VITALS: BP 156/100
[2024-06-25 16:00] VITALS: BP 164/92
--- NOTE | 2024-06-25 16:01 | ED.GENMED ---
History of Present Illness
<GENE Lei - Last Filed: 06/28/24 20:29>
General
Chief Complaint: Chest Pain
Source: patient
Exam Limitations: none
Time Seen by Provider: 06/25/24 15:59
Nursing documentation reviewed up to this point in time: agreed with
History of Present Illness
History of Present Illness:
79 yr old female presents to the ER for evaluation of nausea weakness and decreased appetite and fatigue. Pt has also had issues with constipation recently however she had an episode of diarrhea today.
Daughter reports patient was seen here and admitted in April also for hyponatremia and did have syncopal episode at that time. I did review the notes from admission in April. patient was found to have a low sodium of 120 at that time. She was on
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 No Lexapro was continued and patient is still taking Lexapro. She is following her fluid
restriction.
Past History
<GENE Lei - Last Filed: 06/28/24 20:29>
Past History
ED Past Medical History: HTN and Other (IBS, diverticulitis, pancreatitis)
ED Past Surgical History: Orthopedic
Social History
Tobacco: Non-smoker
Alcohol: Occasional
Drug: None
Personal:
Living: with family
Employment: Other
Family History
Family History: Negative Diabetes, Hypertension or CAD
Review of Systems
<GENE Lei - Last Filed: 06/28/24 20:29>
Review of Systems
Allergies reviewed?: Yes
Other source history: family
All Other Systems: ROS reviewed and negative except as documented in HPI and ROS
Constitutional: Reports fatigue; Denies fever or chills
Respiratory: Reports no symptoms
Cardiac: Reports no symptoms
ABD/GI: Reports nausea, constipated and other (dec appetite )
: Reports no symptoms
Musculoskeletal: Reports no symptoms
Skin: Reports no symptoms
Neurological: Reports no symptoms
Psychiatric: Reports no symptoms
Phy Exam
<GENE Lei - Last Filed: 06/28/24 20:29>
General Physical Exam
General Presentation: no apparent distress
General age: appears stated age
General Skin: warm and dry
General Habitus: normal
General Mental: alert
General Hydration: appears well hydrated
Cardiovascular Exam
Cardiovascular Exam: regular rate/rhythm, no murmur and normal peripheral pulses
Scores
<GENE Lei - Last Filed: 06/28/24 20:29>
Heart Score for Chest Pain Patients
Heart Score for Chest Pain Patients: 0
Heart Score Risk: 2.5% MACE over next 6 weeks
<Tre Lynch PA-C - Last Filed: 06/25/24 20:24>
Heart Score for Chest Pain Patients
STEMI patient?: No
History: Slightly or Non-Suspicious
ECG: Normal
Age: </= 45 years
Risk Factors: No Risk Factors
Troponin: </= Normal Limit
Heart Score for Chest Pain Patients: 0
Heart Score Risk: 2.5% MACE over next 6 weeks
Course
<GENE Lei - Last Filed: 06/28/24 20:29>
Orders/Labs/Results
Orders:
Orders
06/25/24 13:42
Electrocardiogram (*1) Urgent
Reason for Study: Chest Pain
Other Reason for Exam: nausea, chest pain
EKG- Treatment ONCE
06/25/24 13:58
Complete Blood Count/With Diff Urgent
Comprehensive Metabolic Panel Urgent
Lipase Urgent
Troponin I Urgent
06/25/24 16:25
CT Abd/pelvis W Iv Cont Urgent
Comment:
Reason For Exam: constipation elevated lfts dec appetite /nausea
0.9% Sodium Chloride 1000 ml [Nss] 1,000 ml IV BOLUS
06/25/24 18:04
UA Reflex to Culture [Urinalysis Reflex To Culture] Urgent
Date Specimen was Collected: 06/25/24
Time Specimen was Collected: 18:01
Urine Microscopic Reflex Cult Urgent
Urine Culture Urgent
ANDREI Source: U
Specimen Description:
Date Specimen was Collected: 06/25/24
Time Specimen was Collected: 18:01
Abnormal Lab Results
06/25/24 06/25/24
13:58 18:04
Hct 36.4 L %
(37.0-47.0)
RDW 17.4 H %
(11.5-14.5)
Abs Immat Gran (auto) 0.1 H 10^3/uL
(0-0.05)
Absolute Neuts (auto) 7.1 H 10^3/uL
(1.4-6.5)
Absolute Monos (auto) 1.0 H 10^3/uL
(0.1-0.6)
Lymphocytes % 16.0 L %
(20.5-51.1)
Monocytes % 10.1 H %
(1.7-9.3)
Sodium 130 L mmol/L
(135-145)
Glucose 118 H mg/dl
(70-99)
AST 57 H U/L
(14-36)
ALT 83 H U/L
(0-35)
Leukocyte Esterase Rfl 1+ A
(Negative)
Urine Bacteria (Reflex) Few A
(Negative)
Urine Albumin (Reflex) 1+ A
(Neg - Trace)
06/25/24 13:58
06/25/24 13:58
Vital Signs
Initial and Last Documented VS:
Initial Vital Signs
Temp Pulse Resp BP Pulse Ox
99.0 F 81 16 147/102 96
06/25/24 13:43 06/25/24 13:43 06/25/24 13:43 06/25/24 13:43 06/25/24 13:43
Last Documented Vital Signs
Temp Pulse Resp BP Pulse Ox
99.0 F 73 18 130/74 98
06/25/24 13:43 06/25/24 20:40 06/25/24 20:40 06/25/24 20:40 06/25/24 20:40
Crate Icer consulted with Physician
Crate Icer consulted with physician?: Yes
Name of Physician Consulted: Will
<Tre Lynch PA-C - Last Filed: 06/25/24 20:24>
Orders/Labs/Results
Orders:
Orders
06/25/24 13:42
Electrocardiogram (*1) Urgent
Reason for Study: Chest Pain
Other Reason for Exam: nausea, chest pain
EKG- Treatment ONCE
06/25/24 13:58
Complete Blood Count/With Diff Urgent
Comprehensive Metabolic Panel Urgent
Lipase Urgent
Troponin I Urgent
06/25/24 16:25
CT Abd/pelvis W Iv Cont Urgent
Comment:
Reason For Exam: constipation elevated lfts dec appetite /nausea
0.9% Sodium Chloride 1000 ml [Nss] 1,000 ml IV BOLUS
06/25/24 18:04
UA Reflex to Culture [Urinalysis Reflex To Culture] Urgent
Date Specimen was Collected: 06/25/24
Time Specimen was Collected: 18:01
Urine Microscopic Reflex Cult Urgent
Urine Culture Urgent
ANDREI Source: U
Specimen Description:
Date Specimen was Collected: 06/25/24
Time Specimen was Collected: 18:01
Abnormal Lab Results
06/25/24 06/25/24
13:58 18:04
Hct 36.4 L %
(37.0-47.0)
RDW 17.4 H %
(11.5-14.5)
Abs Immat Gran (auto) 0.1 H 10^3/uL
(0-0.05)
Absolute Neuts (auto) 7.1 H 10^3/uL
(1.4-6.5)
Absolute Monos (auto) 1.0 H 10^3/uL
(0.1-0.6)
Lymphocytes % 16.0 L %
(20.5-51.1)
Monocytes % 10.1 H %
(1.7-9.3)
Sodium 130 L mmol/L
(135-145)
Glucose 118 H mg/dl
(70-99)
AST 57 H U/L
(14-36)
ALT 83 H U/L
(0-35)
Leukocyte Esterase Rfl 1+ A
(Negative)
Urine Bacteria (Reflex) Few A
(Negative)
Urine Albumin (Reflex) 1+ A
(Neg - Trace)
06/25/24 13:58
06/25/24 13:58
Vital Signs
Initial and Last Documented VS:
Initial Vital Signs
Temp Pulse Resp BP Pulse Ox
99.0 F 81 16 147/102 96
06/25/24 13:43 06/25/24 13:43 06/25/24 13:43 06/25/24 13:43 06/25/24 13:43
Last Documented Vital Signs
Temp Pulse Resp BP Pulse Ox
99.0 F 73 18 130/74 98
06/25/24 13:43 06/25/24 20:40 06/25/24 20:40 06/25/24 20:40 06/25/24 20:40
<GENE Lei - Last Filed: 06/28/24 20:29>
MDM/Problems Addressed
MDM/Problems Addressed:
Patient is document is a 79-year-old female with history of hyponatremia in the past presents for persistent nausea decreased appetite intermittent constipation. This is gotten progressively worse as per family. She is continued on fluid
restriction. She denies any vomiting. She felt that her sodium might be low again and came to the ER. Daughter reports this is gotten progressively worse this is not necessarily new. Her family doctors are aware of this. Her sodium is low at
130 her white count is normal she denies any fevers her LFTs are minimally elevated she has no complaints abdominal pain however Case reviewed with ED physician will CT.
Patient denies any urinary symptoms.
CAT scan pending at this time. Care of pt at this time transferred to [facility] . Patient received fluids and is feeling actually better patient does feel that she can go home if CAT scan is negative. I did review with patient that she
will need to have her sodium level rechecked and closely follow-up family doctor.
Chronic conditions affecting care:
History of hyponatremia
<GENE Lei - Last Filed: 06/28/24 20:29>
*Radiology
Radiology exam reviewed: radiology read reviewed
*Pulse Oximetry
Patient hypoxic: no
<Tre Lynch PA-C - Last Filed: 06/25/24 20:24>
*Critical Care Note
Total Time (30-74mins, 75-104mins- exclusive of procedures): Not Applicable
<Tre Lynch PA-C - Last Filed: 06/25/24 20:24>
Update Note
Update Note:
Received care of patient pending CT. CT of abdomen pelvis was negative for acute finding. Patient is feeling better she is ambulatory went to the bathroom. She was slightly hyponatremic today but she was given fluids. Stable for discharge.
ED Attending Note
<GENE Lei - Last Filed: 06/28/24 20:29>
-
Portions of this chart may have been created with voice recognition software.� Occasional wrong word or��sound alike� substitutions may have occurred due to the inherent limitations of voice recognition software.
Discharge Plan
Departure
Patient Disposition: Home (Routine Discharge)
Date of Disposition: 06/25/24
Time of Disposition: 20:24
Patient with high blood pressure during this ER visit?: Yes
Condition: Fair
Covid-19: Not Applicable
Discharge Problem:
Acute hyponatremia
Instructions: Hyponatremia
Prescriptions:
No Action
metoprolol succinate 25 MG tablet extended release 24 hr
25 mg PO DAILY
Linzess 145 MCG capsule
145 mcg PO DAILY
Prevagen capsule
1 cap PO DAILY
cyanocobalamin (vitamin B-12) 1,000 mcg Tablet
1,000 mcg PO DAILY Qty: 0
escitalopram oxalate [Lexapro] 20 mg Tablet
20 mg PO DAILY
PreserVision AREDS 2,148 mcg-113 mg-45 mg-17.4mg Tablet
1 tab PO DAILY
rosuvastatin [Crestor] 10 mg Tablet
10 mg PO DAILY
celecoxib [Celebrex] 200 mg Capsule
200 mg PO DAILY Qty: 0 0RF
lisinopril 20 MG tablet
20 mg PO DAILY Qty: 0 0RF
tramadol 50 mg Tablet
50 mg PO TID
alprazolam 0.25 mg tablet
0.25 mg PO BID
ondansetron HCl 4 mg Tablet
4 mg PO Q8HPRN PRN (Reason: nausea)
therapeutic multivitamin Tablet
1 tab PO DAILY
esomeprazole magnesium 40 mg Capsule,Delayed Release(Dr/Ec)
40 mg PO DAILY
docusate sodium [Colace] 100 mg Capsule
100 mg PO DAILYPRN PRN (Reason: constipation)
Referrals:
Kajal Malik CRNP [Family Provider] -
Activity Restrictions/Additional Instructions:
Please follow-up with your family doctor in next several days for reevaluation of your symptoms. In addition you will need your sodium level rechecked in the next week. Return if any worsening of symptoms.
Interventions
Interventions:
*Risk Screen - Suicide Last Done: 06/25/24 13:43
*General Assessment Last Done: 06/25/24 13:43
*Neglect/Abuse Screening Last Done: 06/25/24 16:51
*ED- Fall Risk Assessment Last Done: 06/25/24 18:07
*ED COVID-19 Vaccine History Last Done: 06/25/24 18:07
*Nursing Disposition Last Done: 06/25/24 20:40
ED- Cardiac Assessment Last Done: 06/25/24 18:06
Discharge Date and Time
Discharge Date/Time: 06/25/24 20:41
Print Language: SAMOAN
[2024-06-25 17:00] VITALS: BP 167/93
[2024-06-25] MEDS: NSS 1000 IV (17:01)
[2024-06-25 18:13] LABS: Urine Albumin 1+ (Neg - Trace); Urine Bilirubin Negative (Negative); Urine Character Clear (Clear); Urine Color Yellow; Urine Glucose Negative (Negative); Urine Ketone Negative (Negative); Urine Leukocyte 1+ (Negative); Urine Nitrite Negative (Negative); Urine Occult Blood Negative (Negative); Urine Specific Gravity 1.005 (<1.030); Urine Urobilinogen Negative (Neg - 1+)
[2024-06-25 19:00] LABS: Urine Bacteria Few (Negative); Urine Red Blood Cell 0-2 /HPF (0-2); Urine Squamous Cell >30 /LPF (Few)
[2024-06-25 20:40] VITALS: BP 130/74
== END 2024-06-25 20:41 | disposition home or self-care (01) ==
LOC: EMR 13:40
PROVIDERS: Emergency Medicine; Nurse Practitioner; EMERGENCY PHYSICIAN Emergency Medicine; FAMILY PHYSICIAN Nurse Practitioner Primary Care
DX: E87.1 Hypo-osmolality and hyponatremia (principal); I10 Essential (primary) hypertension; K58.9 Irritable bowel syndrome, unspecified
CPT/HCPCS: 99284; 96360; 74177; 80053; 81003; 81015; 83690; 84484; 85025; 87086; 93005; Q9967

== ENCOUNTER → 2024-07-28 11:49 | Outpatient (REF) | payer MEDICARE, OTHER, SELFPAY | LOC: RCS 11:49 | PROVIDERS: ATTENDING PHYSICIAN Nurse Practitioner Primary Care | DX: I25.10 Atherosclerotic heart disease of native coronary artery without angina pectoris (principal); E78.2 Mixed hyperlipidemia; R07.89 Other chest pain | CPT/HCPCS: 78452; 93017; A9500; J2785 ==